=== PATIENT | female | born 1980 | race Caucasian/White ===

== ENCOUNTER 2018-08-24 19:04 | Inpatient (IN) | payer MEDICAID ==
[~2018-08-24] VITALS: Ht 157.5 cm; Wt 103.9 kg
[2018-08-24] MEDS ORDERED: ONDANSETRON 4 MG INJ IV STA (21:04)
[2018-08-24] MEDS ORDERED: BELLADONNA/PHENOBARBITAL TAB PO STA (21:04)
[2018-08-24] MEDS ORDERED: SOD CHLORIDE 0.9% 1,000 ML IV STA (21:04)
[2018-08-24] MEDS ORDERED: KETOROLAC 15 MG INJ IV STA (21:04)
[2018-08-24] MEDS ORDERED: LIDOCAINE/MYLANTA 40 ML BTL PO STA (21:04)
[2018-08-24] MEDS ORDERED: CEPHALEXIN 500 MG CAP PO ONE (22:30)
[2018-08-24] MEDS ORDERED: CEFTRIAXONE 1 GM/50 ML (PMX) 50 ML IVPB ONE (22:30)
[2018-08-24] MEDS ORDERED: PIPER-TAZO 3.375 GM IV (PMX) 100 ML IVPB ONE (23:30)
--- NOTE | 2018-08-24 23:31 | ERD ---
ER Documentation Chief Complaint Chief Complaint right upper abd pain/vomiting x 3 days. hx of gallstones HPI 37-year-old woman complains of right upper quadrant abdominal pain with nausea and multiple episodes of vomiting over the last 3 days. She does have a history of gallstones and suspects her gallstones are acting up again. She denies fevers, no chest pain or shortness of breath, no blood per rectum or melena ROS All systems reviewed and are negative except as per history of present illness. Medications Home Meds Reported Medications [None] No Conflict Check 12/16/12 Allergies Allergies: Coded Allergies: No Known Allergy (Unverified , 12/16/12) PMhx/Soc Obesity, gallstones History of Surgery: No Anesthesia Reaction: No Hx Neurological Disorder: No Hx Respiratory Disorders: No Hx Cardiac Disorders: No Hx Psychiatric Problems: No Hx Miscellaneous Medical Probl: Yes (GALLSTONES) Hx Alcohol Use: No Hx Substance Use: No Hx Tobacco Use: No Smoking Status: Never smoker FmHx Family History: No diabetes Physical Exam Vitals Vital Signs Date Temp Pulse Resp B/P (MAP) Pulse Ox O2 O2 Flow FiO2 Time Delivery Rate 08/24/18 97.5 69 17 93/79 (84) 96 Room Air 20:59 08/24/18 97.5 65 18 120/56 100 19:07 (77) Physical Exam GENERAL: Well-developed, well-nourished, moderate discomfort, afebrile HEENT: Moist mucous membranes, pink conjunctiva, no cervical spine tenderness or step-off deformities, no goiter, no jaundice or icterus, extraocular movements intact without pain. No submandibular induration, and no pharyngeal erythema NEURO: Alert and oriented 3, cranial nerves II through XII intact bilaterally, pupils equal round reactive to light, no focal deficits or facial asymmetry, sensation intact distally Strength 5/5 in upper and lower extremities b ilaterally CARDIAC: Regular rate and rhythm, no murmurs rubs or gallops LUNGS: Clear bilaterally no wheezing crackles or stridor ABDOMEN: Soft, right upper quadrant tenderness to touch with voluntary guarding, no rigidity or rebound, no psoas sign SKIN: Warm and dry to touch, no abrasions, contusions, or hematomas, no lacerations, no ecchymosis, no target lesions, and without ulcers EXTREMITIES: No clubbing cyanosis or edema, calves are bilaterally symmetrical, no Homans sign, no popliteal cord sign. Distal pulses equal and bilateral PSYCH: Normal affect without agitation or irritability Result Diagram: 08/24/18212108/24/182121 Results 24 hrs Laboratory Tests Test 08/24/18 21:22 White Blood Count 13.0 10^3/ul Red Blood Count 4.46 10^6/ul Hemoglobin 12.7 g/dl Hematocrit 38.9 % Mean Corpuscular Volume 87.2 fl Mean Corpuscular Hemoglobin 28.5 pg Mean Corpuscular Hemoglobin Concent 32.6 g/dl Red Cell Distribution Width 13.0 % Platelet Count 289 10^3/UL Mean Platelet Volume 10.3 fl Immature Granulocytes % 0.500 % Neutrophils % 87.6 % Lymphocytes % 6.9 % Monocytes % 4.7 % Eosinophils % 0.1 % Basophils % 0.2 % Nucleated Red Blood Cells % 0.0 /100WBC Immature Granulocytes # 0.070 10^3/ul Neutrophils # 11.4 10^3/ul Lymphocytes # 0.9 10^3/ul Monocytes # 0.6 10^3/ul Eosinophils # 0.0 10^3/ul Basophils # 0.0 10^3/ul Nucleated Red Blood Cells # 0.0 10^3/ul Prothrombin Time 12.7 Sec Prothrombin Time Ratio 1.0 INR International Normalized Ratio 0.94 Activated Partial Thromboplast Time 25.1 Sec Urine Color YELLOW Urine Clarity SLIGHTLY CLOUDY Urine pH 8.0 Urine Specific [place] 1.024 Urine Ketones NEGATIVE mg/dL Urine Nitrite NEGATIVE mg/dL Urine Bilirubin NEGATIVE mg/dL Urine Urobilinogen 2+ mg/dL Urine Leukocyte Esterase TRACE [place]/ul Urine Microscopic RBC 6 /HPF Urine Microscopic WBC 5 /HPF Urine Squamous Epithelial Cells FEW /HPF Urine Bacteria FEW /HPF Urine Mucus FEW /HPF Urine Hemoglobin NEGATIVE mg/dL Urine Glucose NEGATIVE mg/dL Urine Total Protein NEGATIVE mg/dl Sodium Level 139 mmol/L Potassium Level 3.6 mmol/L Chloride Level 105 mmol/L Carbon Dioxide Level 26 mmol/L Anion Gap 8 Blood Urea Nitrogen 18 mg/dl Creatinine 0.74 mg/dl Est Glomerular Filtrat Rate mL/min > 60 mL/min Glucose Level 158 mg/dl Calcium Level 9.2 mg/dl Total Bilirubin 0.2 mg/dl Direct Bilirubin 0.00 mg/dl Indirect Bilirubin 0.2 mg/dl Aspartate Amino Transf (AST/SGOT) 384 IU/L Alanine Aminotransferase (ALT/SGPT) 170 IU/L Alkaline Phosphatase 154 IU/L Total Protein 8.2 g/dl Albumin 4.3 g/dl Globulin 3.90 g/dl Albumin/Globulin Ratio 1.10 Lipase 101 U/L Current Medications Medications Dose Sig/Katelyn Start Time Status Last (Trade) Ordered Route PRN Stop Time Admin Dose Reason Admin Sodium 1,000 ml @ Q1H STAT 08/24/18 DC 08/24/18 Chloride 1,000 mls/hr IV 21:04 21:33 08/24/18 22:03 Ondansetron 4 mg ONCE STAT 08/24/18 DC 08/24/18 HCl (Zofran IV 21:04 21:34 Inj) 08/24/18 21:13 40 ml ONCE STAT 08/24/18 DC 08/24/18 Miscellaneous PO 21:04 21:34 Medication 08/24/18 21:13 (Gi Cocktail (2)) Belladonna/ 2 tab ONCE STAT 08/24/18 DC 08/24/18 Phenobarbital PO 21:04 21:34 () 08/24/18 21:13 Ketorolac 15 mg ONCE STAT 08/24/18 DC 08/24/18 Tromethamine IV 21:04 21:33 (Toradol) 08/24/18 21:13 Ceftriaxone 50 ml @ ONCE ONCE 08/24/18 DC Sodium 100 mls/hr IVPB 22:30 08/24/18 22:30 Cephalexin 500 mg ONCE ONCE 08/24/18 DC 08/24/18 (Keflex) PO 22:30 22:20 08/24/18 22:31 Procedures/MDM IV line was established patient was placed on bus driver/monitor rhythm strip revealed a sinus rhythm at about 80 bpm with upright P and T waves. Patient was afebrile I administered 1 L normal saline IV, Toradol 15 mg IV, Zofran 4 mg IV, GI cocktail p.o. CBC reveals a mild leukocytosis at 13, electrolytes revealed dehydration, liver function tests abnormal with transaminitis and elevated alkaline phosphatase, urinalysis is equivocal and I initially treated with cephalexin 500 mg p.o. Ultrasound of the gallbladder revealed dilated common bile duct concerning for choledocholithiasis so I treated her here with Zosyn 3.375 g IV. Patient will be admitted to [facility] for continued medical management, further imaging imaging, GI consultation Departure Diagnosis: Primary Impression: Abdominal pain Abdominal location: right upper quadrant Qualified Codes: R10.11 - Right upper quadrant pain Additional Impression: Choledocholithiasis with acute cholecystitis Condition: YAMIL Veras MD Aug 24, 2018 23:31
--- NOTE | 2018-08-24 23:39 | HP ---
Date/Time of Note Date/Time of Note DATE: 08/24/18 TIME: 23:38 Assessment/Plan VTE Prophylaxis SCD applied (from Nsg): Yes Pharmacological prophylaxis: NA/contraindicated Pharm contraindication: low risk/ambulating Lines/Catheters IV Catheter Type (from Nrsg): Saline Lock Assessment/Plan Hospital Course This is a 37-year female being admitted [facility] floor for: #1 suspect choledocholithiasis: Preliminary ultrasound read showed dilated common bile duct concerning for choledocholithiasis. Transaminitis. Recommend MRCP, which has been ordered. Patient does have an Essure placed will need to confirm with MRI department whether patient is compatible for MRCP will consult GI . Prophylactic antibiotics Zosyn. Give patient n.p.o., IV fluid hydration normal saline, pain management. #2 Morbid obesity: We will check hemoglobin A 1C, lipid panel, TSH #3 DVT and GI prophylaxis: SCDs, no GI prophylaxis indicated Further treatment strategy will be implemented as per the clinical course Result Diagram: 08/24/18212108/24/182121 Results 24hrs Laboratory Tests Test 08/24/18 21:22 White Blood Count 13.0 H Red Blood Count 4.46 Hemoglobin 12.7 Hematocrit 38.9 Mean Corpuscular Volume 87.2 Mean Corpuscular Hemoglobin 28.5 L Mean Corpuscular Hemoglobin Concent 32.6 Red Cell Distribution Width 13.0 Platelet Count 289 Mean Platelet Volume 10.3 Immature Granulocytes % 0.500 H Neutrophils % 87.6 H Lymphocytes % 6.9 L Monocytes % 4.7 Eosinophils % 0.1 Basophils % 0.2 Nucleated Red Blood Cells % 0.0 Immature Granulocytes # 0.070 H Neutrophils # 11.4 H Lymphocytes # 0.9 Monocytes # 0.6 Eosinophils # 0.0 Basophils # 0.0 Nucleated Red Blood Cells # 0.0 Prothrombin Time 12.7 Prothrombin Time Ratio 1.0 INR International Normalized Ratio 0.94 Activated Partial Thromboplast Time 25.1 Urine Color YELLOW Urine Clarity SLIGHTLY CLOUDY A Urine pH 8.0 Urine Specific [place] 1.024 Urine Ketones NEGATIVE Urine Nitrite NEGATIVE Urine Bilirubin NEGATIVE Urine Urobilinogen 2+ H Urine Leukocyte Esterase TRACE A Urine Microscopic RBC 6 H Urine Microscopic WBC 5 Urine Squamous Epithelial Cells FEW Urine Bacteria FEW A Urine Mucus FEW A Urine Hemoglobin NEGATIVE Urine Glucose NEGATIVE Urine Total Protein NEGATIVE Sodium Level 139 Potassium Level 3.6 Chloride Level 105 Carbon Dioxide Level 26 Anion Gap 8 Blood Urea Nitrogen 18 Creatinine 0.74 Est Glomerular Filtrat Rate mL/min > 60 Glucose Level 158 Calcium Level 9.2 Total Bilirubin 0.2 Direct Bilirubin 0.00 Indirect Bilirubin 0.2 Aspartate Amino Transf (AST/SGOT) 384 H Alanine Aminotransferase (ALT/SGPT) 170 H Alkaline Phosphatase 154 H Total Protein 8.2 H Albumin 4.3 Globulin 3.90 H Albumin/Globulin Ratio 1.10 Lipase 101 HPI/ROS Admit Date/Time Admit Date/Time Hx of Present Illness Chief complaint: Abdominal pain and vomiting times 3 days 37-year-old woman complains of right upper quadrant abdominal pain with nausea and multiple episodes of vomiting over the last 3 days. She does have a history of gallstones and suspects her gallstones are acting up again. She reports chills. But she denies any fevers. She does have an Essure. Allergies: NKDA Medications: None ROS Const: As per HPI Eyes : No pain discharge or redness or change in visual acuity ENT: No pain, sore throat, congestion, congestion, dysphagia or discharge Respiratory: No shortness of breath, cough, sputum, wheezing, or pleuritic pain Cardiovascular: No chest pain, palpitation, PND, or edema GI : As per HPI Genitourinary: No dysuria, hematuria, flank pain , discharge or CVA tenderness Musculoskeletal: No joint pain, back pain, neck pain, restricted range of motion in neck or joints Skin: No rash, bruising or hives Neuro: No headache, dizziness, syncope, seizure, focal weakness Endocrine: No polyuria, polydipsia, temperature intolerance Psych: No hallucination, depression, anxiety or suicidal ideation PMH/Family/Social Past Medical History Gallstones Medications Current Medications Piperacillin Sod/ Tazobactam Sod 100 ml @ 200 mls/hr ONCE ONCE IVPB ; Start 08/24/18 at 23:30; Stop 08/24/18 at 23:59; Status UNV Coded Allergies: No Known Allergy (Unverified , 12/16/12) Past Surgical History essure placement, appendectomy Family History Significant Family History: no pertinent family hx Social History Alcohol Use: none Smoking Status: Never smoker Drug Use: cocaine Exam/Review of Systems Vital Signs Vitals Vital Signs Date Temp Pulse Resp B/P (MAP) Pulse Ox O2 O2 Flow FiO2 Time Delivery Rate 08/24/18 97.5 69 17 93/79 (84) 96 Room Air 20:59 Exam Exam General: Currently lying in no acute distress HEENT: Atraumatic, normocephalic. The pupils are equal, round and reactive. Extraocular motor are intact Neck: Supple with full range of motion. No rigidity or meningismus Chest: Nontender Lungs: Clear to auscultation bilaterally no crackles rales or wheezing Heart: Normal S1-S2, Regular rhythm and rate. No murmur, S3, or S4 Abdomen: Morbidly obese, mild tenderness of patient with right upper quadrant, soft, nondistended , bowel sounds are present. No guarding no rebound tenderness , No masses or organomegaly. No costovertebral temporal angle mass Extremities: Normal to inspection, no edema no cyanosis Neurologic: Normal mental status, speech normal, cranial nerves II through XII are intact, motor and sensory are intact, no focal weakness Additional Comments Ultrasound of the gallbladder revealed dilated common bile duct concerning for choledocholithiasis AUGIE BLACK Aug 24, 2018 23:39
[2018-08-25] MEDS ORDERED: DOCUSATE SODIUM 100 MG CAP PO PRN
[2018-08-25] MEDS ORDERED: NACL 0.9% 3 ML SYG IV SCH
[2018-08-25] MEDS ORDERED: BISACODYL (EC) 5 MG TAB PO PRN
[2018-08-25] MEDS ORDERED: ONDANSETRON 4 MG INJ IV PRN
[2018-08-25] MEDS: PIPER-TAZO 3.375 GM IV (PMX) 100 ML IVPB SCH ×4 (00:22→17:52)
[2018-08-25] MEDS: HYDROmorphONE 0.5 MG/0.5 ML SYG IV PRN (00:22)
[2018-08-25 01:42] VITALS: Ht 157.5 cm; Wt 103.9 kg
[2018-08-25 01:52] VITALS: BP 117/64; PULSE 53; RESP 16
[2018-08-25] MEDS: SOD CHLORIDE 0.9% 1,000 ML IV SCH ×2 (02:21→17:51)
[2018-08-25 08:42] VITALS: BP 125/59; PULSE 51; RESP 18
--- NOTE | 2018-08-25 10:35 | PN ---
Date/Time of Note Date/Time of Note DATE: 08/25/18 TIME: 10:34 Assessment/Plan VTE Prophylaxis Risk score (from Ns)>0 risk: 0 SCD applied (from Ns): Yes Pharmacological prophylaxis: NA/contraindicated Pharm contraindication: low risk/ambulating Lines/Catheters IV Catheter Type (from Nrs): Saline Lock Assessment/Plan Hospital Course S: feels obverall better but still with mild abd pain O: Constitutional: alert, oriented,no distress Head: atraumatic, normocephalic Neck: non-tender, supple Respiratory: clear to auscultation Cardiovascular: regular rate and rhythm Gastrointestinal: S/ NT / ND / +BS Extremities: no edema, good radial pulses assessment and plan: #1 suspect choledocholithiasis: -Preliminary ultrasound read showed dilated common bile duct concerning for choledocholithiasis. -Transaminitis. Recommend MRCP, which has been ordered. -Patient does have an Essure placed will need to confirm with MRI department whether patient is compatible for MRCP will consult GI . -Prophylactic antibiotics Zosyn. -will also need surgical consult #2 Possible UTI: -on abx for #1 Result Diagram: 08/25/18 0421 08/25/18 0421 Results 24hrs Laboratory Tests Test 08/24/18 21:22 08/25/18 04:21 White Blood Count 13.0 H 6.8 # Red Blood Count 4.46 4.03 L Hemoglobin 12.7 11.5 L Hematocrit 38.9 35.5 L Mean Corpuscular Volume 87.2 88.1 Mean Corpuscular Hemoglobin 28.5 L 28.5 L Mean Corpuscular Hemoglobin Concent 32.6 32.4 Red Cell Distribution Width 13.0 13.3 Platelet Count 289 256 Mean Platelet Volume 10.3 10.6 H Immature Granulocytes % 0.500 H 0.100 Neutrophils % 87.6 H 76.7 Lymphocytes % 6.9 L 14.3 L Monocytes % 4.7 8.6 Eosinophils % 0.1 0.0 Basophils % 0.2 0.3 Nucleated Red Blood Cells % 0.0 0.0 Immature Granulocytes # 0.070 H 0.010 Neutrophils # 11.4 H 5.2 Lymphocytes # 0.9 1.0 Monocytes # 0.6 0.6 Eosinophils # 0.0 0.0 Basophils # 0.0 0.0 Nucleated Red Blood Cells # 0.0 0.0 Prothrombin Time 12.7 Prothrombin Time Ratio 1.0 INR International Normalized Ratio 0.94 Activated Partial Thromboplast Time 25.1 Urine Color YELLOW Urine Clarity SLIGHTLY CLOUDY A Urine pH 8.0 Urine Specific [place] 1.024 Urine Ketones NEGATIVE Urine Nitrite NEGATIVE Urine Bilirubin NEGATIVE Urine Urobilinogen 2+ H Urine Leukocyte Esterase TRACE A Urine Microscopic RBC 6 H Urine Microscopic WBC 5 Urine Squamous Epithelial Cells FEW Urine Bacteria FEW A Urine Mucus FEW A Urine Hemoglobin NEGATIVE Urine Glucose NEGATIVE Urine Total Protein NEGATIVE Sodium Level 139 142 Potassium Level 3.6 4.1 Chloride Level 105 106 Carbon Dioxide Level 26 28 Anion Gap 8 8 Blood Urea Nitrogen 18 16 Creatinine 0.74 0.76 Est Glomerular Filtrat Rate mL/min > 60 > 60 Glucose Level 158 118 # Calcium Level 9.2 8.3 L Total Bilirubin 0.2 0.4 Direct Bilirubin 0.00 0.00 Indirect Bilirubin 0.2 0.4 Aspartate Amino Transf (AST/SGOT) 384 H 852 H Alanine Aminotransferase (ALT/SGPT) 170 H 520 H Alkaline Phosphatase 154 H 133 H Total Protein 8.2 H 6.9 # Albumin 4.3 3.4 Globulin 3.90 H 3.50 H Albumin/Globulin Ratio 1.10 0.97 Lipase 101 Hemoglobin A1c 4.9 Magnesium Level 2.4 Triglycerides Level 63 Cholesterol Level 158 LDL Cholesterol, Calculated 100 HDL Cholesterol 45 Cholesterol/HDL Ratio 3.5 Thyroid Stimulating Hormone (TSH) 0.694 Exam/Review of Systems Exam Vitals Vital Signs Date Temp Pulse Resp B/P (MAP) Pulse Ox O2 O2 Flow FiO2 Time Delivery Rate 08/25/18 97.9 51 18 125/59 99 Nasal 08:42 (81) Cannula Intake and Output 08/24/18 08/24/18 08/25/18 1515:00 23:00 07:00 IntakeIntake Total 320 ml BalanceBalance 320 ml Exam General: Currently lying in no acute distress HEENT: Atraumatic, normocephalic. The pupils are equal, round and reactive. Extraocular motor are intact Neck: Supple with full range of motion. No rigidity or meningismus Chest: Nontender Lungs: Clear to auscultation bilaterally no crackles rales or wheezing Heart: Normal S1-S2, Regular rhythm and rate. No murmur, S3, or S4 Abdomen: Morbidly obese, mild tenderness of patient with right upper quadrant, soft, nondistended , bowel sounds are present. No guarding no rebound tender ness , No masses or organomegaly. No costovertebral temporal angle mass Extremities: Normal to inspection, no edema no cyanosis Neurologic: Normal mental status, speech normal, cranial nerves II through XII are intact, motor and sensory are intact, no focal weakness Results Results 24hrs Laboratory Tests Test 08/24/18 21:22 08/25/18 04:21 White Blood Count 13.0 H 6.8 # Red Blood Count 4.46 4.03 L Hemoglobin 12.7 11.5 L Hematocrit 38.9 35.5 L Mean Corpuscular Volume 87.2 88.1 Mean Corpuscular Hemoglobin 28.5 L 28.5 L Mean Corpuscular Hemoglobin Concent 32.6 32.4 Red Cell Distribution Width 13.0 13.3 Platelet Count 289 256 Mean Platelet Volume 10.3 10.6 H Immature Granulocytes % 0.500 H 0.100 Neutrophils % 87.6 H 76.7 Lymphocytes % 6.9 L 14.3 L Monocytes % 4.7 8.6 Eosinophils % 0.1 0.0 Basophils % 0.2 0.3 Nucleated Red Blood Cells % 0.0 0.0 Immature Granulocytes # 0.070 H 0.010 Neutrophils # 11.4 H 5.2 Lymphocytes # 0.9 1.0 Monocytes # 0.6 0.6 Eosinophils # 0.0 0.0 Basophils # 0.0 0.0 Nucleated Red Blood Cells # 0.0 0.0 Prothrombin Time 12.7 Prothrombin Time Ratio 1.0 INR International Normalized Ratio 0.94 Activated Partial Thromboplast Time 25.1 Urine Color YELLOW Urine Clarity SLIGHTLY CLOUDY A Urine pH 8.0 Urine Specific [place] 1.024 Urine Ketones NEGATIVE Urine Nitrite NEGATIVE Urine Bilirubin NEGATIVE Urine Urobilinogen 2+ H Urine Leukocyte Esterase TRACE A Urine Microscopic RBC 6 H Urine Microscopic WBC 5 Urine Squamous Epithelial Cells FEW Urine Bacteria FEW A Urine Mucus FEW A Urine Hemoglobin NEGATIVE Urine Glucose NEGATIVE Urine Total Protein NEGATIVE Sodium Level 139 142 Potassium Level 3.6 4.1 Chloride Level 105 106 Carbon Dioxide Level 26 28 Anion Gap 8 8 Blood Urea Nitrogen 18 16 Creatinine 0.74 0.76 Est Glomerular Filtrat Rate mL/min > 60 > 60 Glucose Level 158 118 # Calcium Level 9.2 8.3 L Total Bilirubin 0.2 0.4 Direct Bilirubin 0.00 0.00 Indirect Bilirubin 0.2 0.4 Aspartate Amino Transf (AST/SGOT) 384 H 852 H Alanine Aminotransferase (ALT/SGPT) 170 H 520 H Alkaline Phosphatase 154 H 133 H Total Protein 8.2 H 6.9 # Albumin 4.3 3.4 Globulin 3.90 H 3.50 H Albumin/Globulin Ratio 1.10 0.97 Lipase 101 Hemoglobin A1c 4.9 Magnesium Level 2.4 Triglycerides Level 63 Cholesterol Level 158 LDL Cholesterol, Calculated 100 HDL Cholesterol 45 Cholesterol/HDL Ratio 3.5 Thyroid Stimulating Hormone (TSH) 0.694 Medications Medication Current Medications Sodium Chloride 1,000 ml @ 80 mls/hr [id number] IV Last administered on 08/25/18at 02:21; Admin Dose 80 MLS/HR; Start 08/24/18 at 23:35; Stop 08/25/18 at 23:34 IV Flush (NS 3 ml) 3 ml PER PROTOCOL IV ; Start 08/25/18 at 00:00 Ondansetron HCl (Zofran Inj) 4 mg Q6H PRN IV NAUSEA/VOMITING; Start 08/25/18 at 00:00 Hydromorphone HCl (Dilaudid) 0.5 mg Q4H PRN IV .SEVERE PAIN 7-10 Last administered on 08/25/18at 00:22; Admin Dose 0.5 MG; Start 08/25/18 at 00:00 Docusate Sodium (Colace) 100 mg Q12H PRN PO .CONSTIPATION; Start 08/25/18 at 00:00 Bisacodyl (Dulcolax) 5 mg DAILY PRN PO .CONSTIPATION; Start 08/25/18 at 00:00 Piperacillin Sod/ Tazobactam Sod 100 ml @ 200 mls/hr Q6 IVPB Last administered on 08/25/18at 05:10; Admin Dose 200 MLS/HR; Start 08/25/18 at 00:00 ANGEL MENDOSA Aug 25, 2018 10:34
--- NOTE | 2018-08-25 13:20 | CONS ---
Assessment/Plan Assessment/Plan Hospital Course (Demo Recall) Summary Assessment and Plan: Assessment: Elevated LFTs -R/o choledocholithiasis Cholelithiasis Hepatic steatosis. Obesity Plan: Clear liquids NPO after 08/26/18 at 0900 Not completely clear if Essure is compatible with MRI- therefore MRCP cannot be completed- however given physical exam and abdominal ultrasound results- we will proceed with ERCP tomorrow. Endoscopy - risks/benefits/alternatives/indications of procedure and sedation/anesthesia discussed with patient who states understanding and gives informed consent to proceed. Pt should follow up with GI as an out-pt for fibroscoring given hepatic steatosis Patient seen in collaboration with Dr. Rascon/Pam CC: RAMSES RASCON ; Consultation Date/Type/Reason Admit Date/Time Date of Consultation: Aug 25, 2018 Type of Consult GI Reason for Consultation Elevated LFTs R/o choledocholithiasis Date/Time of Note DATE: 08/25/18 TIME: 12:49 Hx of Present Illness This is a 37 year old female with PMH of cholelithiasis, s/p Essure placed 6 years ago. Who presented to the ED with c/o RUQ pain associated nausea and vomiting. Labs revealed elevated LFTs which has increased today. Pt has a gallbladder u/s cholelithiasis common bile duct measuring up to 13 mm, worrisome for biliary obstruction. Hepatic steatosis. Given history of Essure placement unclear if we are able to proceed with MRI, therefore we will cancel MRCP and plan for ERCP tomorrow. Discussed plan with patient including risk/benefits of alternatives patient verbalized understanding is agreeable to procedure tomorrow. Review of Systems: A 12 system, review was conducted and is negative except as noted in the HPI or here. Past Medical History Home Meds Reported Medications [None] No Conflict Check 12/16/12 Medications Current Medications Sodium Chloride 1,000 ml @ 80 mls/hr [id number] IV Last administered on 08/25/18at 02:21; Admin Dose 80 MLS/HR; Start 08/24/18 at 23:35; Stop 08/25/18 at 23:34 IV Flush (NS 3 ml) 3 ml PER PROTOCOL IV ; Start 08/25/18 at 00:00 Ondansetron HCl (Zofran Inj) 4 mg Q6H PRN IV NAUSEA/VOMITING; Start 08/25/18 at 00:00 Hydromorphone HCl (Dilaudid) 0.5 mg Q4H PRN IV .SEVERE PAIN 7-10 Last administered on 08/25/18at 00:22; Admin Dose 0.5 MG; Start 08/25/18 at 00:00 Docusate Sodium (Colace) 100 mg Q12H PRN PO .CONSTIPATION; Start 08/25/18 at 00:00 Bisacodyl (Dulcolax) 5 mg DAILY PRN PO .CONSTIPATION; Start 08/25/18 at 00:00 Piperacillin Sod/ Tazobactam Sod 100 ml @ 200 mls/hr Q6 IVPB Last administered on 08/25/18at 12:28; Admin Dose 200 MLS/HR; Start 08/25/18 at 00:00 Allergies: Coded Allergies: No Known Allergy (Unverified , 12/16/12) Social History Alcohol Use: none Smoking Status: Never smoker Drug Use: cocaine Exam/Review of Systems Exam Vitals Vital Signs Date Temp Pulse Resp B/P (MAP) Pulse Ox O2 O2 Flow FiO2 Time Delivery Rate 08/25/18 97.9 51 18 125/59 99 Nasal 08:42 (81) Cannula Intake and Output 08/24/18 08/24/18 08/25/18 1515:00 23:00 07:00 IntakeIntake Total 320 ml BalanceBalance 320 ml Exam PHYSICAL EXAMINATION: GENERAL: Well developed, obese, alert & oriented x 3, in no acute distress SKIN: No lesions HEAD: Normocephalic, atraumatic, no tenderness. EYES: Pupils equal reactive to light, no discharge. EARS/NOSE AND THROAT: Ears normal, nose normal NECK: Supple, no masses CHEST: Inspection within normal limits. CARDIOVASCULAR: Heart: Regular rate and rhythm RESPIRATORY: Lungs clear to auscultation GASTROINTESTINAL AND LIVER: Abdomen: Soft, RUQ tenderness, non-distended, no hernias, no masses, no organomegaly, no ascites, no guarding, no rebound tenderness, normoactive bowel sounds. Rectal: Deferred. Results Result Diagram: 08/25/18 0421 08/25/18 0421 Results 24hrs Laboratory Tests Test 08/24/18 21:22 08/25/18 04:21 White Blood Count 13.0 H 6.8 # Red Blood Count 4.46 4.03 L Hemoglobin 12.7 11.5 L Hematocrit 38.9 35.5 L Mean Corpuscular Volume 87.2 88.1 Mean Corpuscular Hemoglobin 28.5 L 28.5 L Mean Corpuscular Hemoglobin Concent 32.6 32.4 Red Cell Distribution Width 13.0 13.3 Platelet Count 289 256 Mean Platelet Volume 10.3 10.6 H Immature Granulocytes % 0.500 H 0.100 Neutrophils % 87.6 H 76.7 Lymphocytes % 6.9 L 14.3 L Monocytes % 4.7 8.6 Eosinophils % 0.1 0.0 Basophils % 0.2 0.3 Nucleated Red Blood Cells % 0.0 0.0 Immature Granulocytes # 0.070 H 0.010 Neutrophils # 11.4 H 5.2 Lymphocytes # 0.9 1.0 Monocytes # 0.6 0.6 Eosinophils # 0.0 0.0 Basophils # 0.0 0.0 Nucleated Red Blood Cells # 0.0 0.0 Prothrombin Time 12.7 Prothrombin Time Ratio 1.0 INR International Normalized Ratio 0.94 Activated Partial Thromboplast Time 25.1 Urine Color YELLOW Urine Clarity SLIGHTLY CLOUDY A Urine pH 8.0 Urine Specific [place] 1.024 Urine Ketones NEGATIVE Urine Nitrite NEGATIVE Urine Bilirubin NEGATIVE Urine Urobilinogen 2+ H Urine Leukocyte Esterase TRACE A Urine Microscopic RBC 6 H Urine Microscopic WBC 5 Urine Squamous Epithelial Cells FEW Urine Bacteria FEW A Urine Mucus FEW A Urine Hemoglobin NEGATIVE Urine Glucose NEGATIVE Urine Total Protein NEGATIVE Sodium Level 139 142 Potassium Level 3.6 4.1 Chloride Level 105 106 Carbon Dioxide Level 26 28 Anion Gap 8 8 Blood Urea Nitrogen 18 16 Creatinine 0.74 0.76 Est Glomerular Filtrat Rate mL/min > 60 > 60 Glucose Level 158 118 # Calcium Level 9.2 8.3 L Total Bilirubin 0.2 0.4 Direct Bilirubin 0.00 0.00 Indirect Bilirubin 0.2 0.4 Aspartate Amino Transf (AST/SGOT) 384 H 852 H Alanine Aminotransferase (ALT/SGPT) 170 H 520 H Alkaline Phosphatase 154 H 133 H Total Protein 8.2 H 6.9 # Albumin 4.3 3.4 Globulin 3.90 H 3.50 H Albumin/Globulin Ratio 1.10 0.97 Lipase 101 Hemoglobin A1c 4.9 Magnesium Level 2.4 Triglycerides Level 63 Cholesterol Level 158 LDL Cholesterol, Calculated 100 HDL Cholesterol 45 Cholesterol/HDL Ratio 3.5 Thyroid Stimulating Hormone (TSH) 0.694 Medications Medication Current Medications Sodium Chloride 1,000 ml @ 80 mls/hr [id number] IV Last administered on 08/25/18at 02:21; Admin Dose 80 MLS/HR; Start 08/24/18 at 23:35; Stop 08/25/18 at 23:34 IV Flush (NS 3 ml) 3 ml PER PROTOCOL IV ; Start 08/25/18 at 00:00 Ondansetron HCl (Zofran Inj) 4 mg Q6H PRN IV NAUSEA/VOMITING; Start 08/25/18 at 00:00 Hydromorphone HCl (Dilaudid) 0.5 mg Q4H PRN IV .SEVERE PAIN 7-10 Last administered on 08/25/18at 00:22; Admin Dose 0.5 MG; Start 08/25/18 at 00:00 Docusate Sodium (Colace) 100 mg Q12H PRN PO .CONSTIPATION; Start 08/25/18 at 00:00 Bisacodyl (Dulcolax) 5 mg DAILY PRN PO .CONSTIPATION; Start 08/25/18 at 00:00 Piperacillin Sod/ Tazobactam Sod 100 ml @ 200 mls/hr Q6 IVPB Last administered on 08/25/18at 12:28; Admin Dose 200 MLS/HR; Start 08/25/18 at 00:00 RAGHAV MELENDEZ Aug 25, 2018 13:09
[2018-08-25 14:14] VITALS: BP 120/59; PULSE 60; RESP 18
[2018-08-25 20:25] VITALS: BP 95/54; PULSE 57; RESP 18
[2018-08-26] VITALS (15 sets, daily range): BP systolic 95–136; BP diastolic 57–70; PULSE 50–67; RESP 12–20
[2018-08-26] MEDS: PIPER-TAZO 3.375 GM IV (PMX) 100 ML IVPB SCH ×2 (00:01→06:06)
[2018-08-26] MEDS ORDERED: INSULIN ASPART [NOVOLOG] 3 ML PEN SC ONE (08:30)
--- NOTE | 2018-08-26 10:16 | PN ---
Date/Time of Note Date/Time of Note DATE: 08/26/18 TIME: 10:12 Assessment/Plan VTE Prophylaxis Risk score (from Nsg)>0 risk: 0 SCD applied (from Nsg): Yes Pharmacological prophylaxis: NA/contraindicated Pharm contraindication: low risk/ambulating Lines/Catheters IV Catheter Type (from Nrsg): Peripheral IV Assessment/Plan Hospital Course S: headache, NPO for ERCP today O: Constitutional: alert, oriented,no distress Head: atraumatic, normocephalic Neck: non-tender, supple Respiratory: clear to auscultation Cardiovascular: regular rate and rhythm Gastrointestinal: S/ NT / ND / +BS Extremities: no edema, good radial pulses assessment and plan: #1 Symptomatic cholelithiasis with transaminitis r/o choledocholithiasis: -Preliminary ultrasound read showed dilated common bile duct concerning for choledocholithiasis. -Transaminitis. -MRCP was done but non conclusive, planned for ERCP today . -will deescalate abx as no sign of cholecystitis on MRI #2 Possible UTI: -continue with macrobid Result Diagram: 08/25/1842008/25/18420 Results 24hrs Laboratory Tests Test 08/26/18 02:50 08/26/18 04:23 Urine Test NEGATIVE Hepatitis B Surface Antigen NEGATIVE Hepatitis B Surface Antibody NEGATIVE Hepatitis B Core Total Antibody NEGATIVE Hepatitis C Antibody NEGATIVE Exam/Review of Systems Exam Vitals Vital Signs Date Temp Pulse Resp B/P (MAP) Pulse Ox O2 O2 Flow FiO2 Time Delivery Rate 08/26/18 98.0 63 18 136/63 96 07:39 (87) 08/25/18 Nasal 2.0 14:14 Cannula Intake and Output 08/25/18 08/25/18 08/26/18 1414:59 22:59 06:59 IntakeIntake Total 420 ml 1480 ml 1000 ml BalanceBalance 420 ml 1480 ml 1000 ml Results Results 24hrs Laboratory Tests Test 08/26/18 02:50 08/26/18 04:23 Urine Test NEGATIVE Hepatitis B Surface Antigen NEGATIVE Hepatitis B Surface Antibody NEGATIVE Hepatitis B Core Total Antibody NEGATIVE Hepatitis C Antibody NEGATIVE Medications Medication Current Medications IV Flush (NS 3 ml) 3 ml PER PROTOCOL IV ; Start 08/25/18 at 00:00 Ondansetron HCl (Zofran Inj) 4 mg Q6H PRN IV NAUSEA/VOMITING; Start 08/25/18 at 00:00 Hydromorphone HCl (Dilaudid) 0.5 mg Q4H PRN IV .SEVERE PAIN 7-10 Last administered on 08/25/18at 00:22; Admin Dose 0.5 MG; Start 08/25/18 at 00:00 Docusate Sodium (Colace) 100 mg Q12H PRN PO .CONSTIPATION; Start 08/25/18 at 00:00 Bisacodyl (Dulcolax) 5 mg DAILY PRN PO .CONSTIPATION; Start 08/25/18 at 00:00 Piperacillin Sod/ Tazobactam Sod 100 ml @ 200 mls/hr Q6 IVPB Last administered on 08/26/18at 06:06; Admin Dose 200 MLS/HR; Start 08/25/18 at 00:00 Indomethacin (Indocin Supp) 100 mg ONCE ONCE MD ; Start 08/26/18 at 16:30; Stop 08/26/18 at 16:31 Acetaminophen (Tylenol Tab) 650 mg Q6H PRN PO MILD PAIN(1-3)OR ELEVATED TEMP; Start 08/26/18 at 10:30; Status ANGEL PHAM Aug 26, 2018 10:16
[2018-08-26] MEDS: SOD CHLORIDE 0.9% 1,000 ML IV SCH (10:22)
[2018-08-26] MEDS: ACETAMINOPHEN 325 MG TAB PO PRN (10:23)
--- NOTE | 2018-08-26 13:31 | PREAC ---
Date/Time of Note Date/Time of Note DATE: 08/26/18 TIME: 13:30 Anesthesia Eval and Record Evaluation Time Pre-Procedure Interview DATE: 08/26/18 TIME: 13:30 Age 37 Sex female NPO: 8 hrs Preoperative diagnosis CHOLEDOCHOLITHIAISIS Planned procedure ERCP Past Medical History Past Medical History: Includes GI: Obesity Surgery & Anesthesia Issues No known issue Meds Anticoagulation: No Beta Kahlil within 24 hr: No Reason Beta Kahlil not given: Pt. not on B-Kahlil Reported Medications [None] No Conflict Check 12/16/12 Current Medications IV Flush (NS 3 ml) 3 ml PER PROTOCOL IV ; Start 08/25/18 at 00:00 Ondansetron HCl (Zofran Inj) 4 mg Q6H PRN IV NAUSEA/VOMITING; Start 08/25/18 at 00:00 Hydromorphone HCl (Dilaudid) 0.5 mg Q4H PRN IV .SEVERE PAIN 7-10 Last administered on 08/25/18at 00:22; Admin Dose 0.5 MG; Start 08/25/18 at 00:00 Docusate Sodium (Colace) 100 mg Q12H PRN PO .CONSTIPATION; Start 08/25/18 at 00:00 Bisacodyl (Dulcolax) 5 mg DAILY PRN PO .CONSTIPATION; Start 08/25/18 at 00:00 Indomethacin (Indocin Supp) [address] ; Start 08/26/18 at 16:30; Stop 08/26/18 at 16:31 Acetaminophen (Tylenol Tab) 650 mg Q6H PRN PO MILD PAIN(1-3)OR ELEVATED TEMP Last administered on 08/26/18at 10:23; Admin Dose 650 MG; Start 08/26/18 at 10:30 Nitrofurantoin Macrocrystals (Macrobid) 100 mg BID PO ; Start 08/26/18 at 21:00; Stop 08/29/18 at 20:59 Meds reviewed: Yes Allergies Coded Allergies: No Known Allergy (Unverified , 12/16/12) Allergies Reviewed: Yes Labs/Studies Labs Reviewed: Reviewed by anesthesiologist Result Diagram: 08/25/1842008/25/18420 test: Negative Pre-procedure Exam Last vitals Vital Signs Date Temp Pulse Resp B/P (MAP) Pulse Ox O2 O2 Flow FiO2 Time Delivery Rate 08/26/18 98.0 63 18 136/63 96 07:39 (87) 08/25/18 Nasal 2.0 14:14 Cannula Airway: Adequate mouth opening, Adequate thyromental dist Mallampati: Mallampati II Teeth: Normal Lung: Normal Heart: Normal ASA Physical Status ASA physical status: 2 Emergency: None Planned Anesthetic General/MAC: ETT Planned Pain Management Parenteral pain med Pre-operative Attestations Prior to commencing anesthesia and surgery, the patient was re-evaluated, there was verification of: *The patient's identity *The results of appropriate recent lab work and preoperative vital signs *The above evaluation not changing prior to induction *Anesthetic plan, risk benefits, alternative and complications discussed with patient/family; questions answered; patient/family understands, accepts and wishes to proceed. LIDYA MEDEIROS Aug 26, 2018 13:31
[2018-08-26] MEDS ORDERED: INDOMETHACIN 50 MG SUPP PR ONE ×2 (14:00→16:30)
--- NOTE | 2018-08-26 14:01 | HPN ---
Date/Time of Note Date/Time of Note DATE: 08/26/18 TIME: 14:01 Interval H&P Admission Note Pt. seen H&P reviewed: No system changes UZMA AKERS MD Aug 26, 2018 14:01
[2018-08-26] MEDS ORDERED: IOHEXOL 300MG/ML 30 ML BTL ONE ×2 (14:23→15:28)
[2018-08-26] MEDS ORDERED: PROPOFOL 100 ML ONE (15:38)
[2018-08-26] MEDS ORDERED: LIDOCAINE 2% (SDV) 5 ML INJ ONE (15:38)
[2018-08-26] MEDS ORDERED: DEXAMETHASONE 4 MG/ML 5 ML INJ ONE (15:42)
[2018-08-26] MEDS ORDERED: ONDANSETRON 4 MG INJ ONE (15:44)
--- NOTE | 2018-08-26 16:24 | PAC ---
Date/Time of Note Date/Time of Note DATE: 08/26/18 TIME: 16:23 Post-Anesthesia Notes Post-Anesthesia Note Last documented vital signs Vital Signs Date Temp Pulse Resp B/P (MAP) Pulse Ox O2 O2 Flow FiO2 Time Delivery Rate 08/26/18 98.0 63 18 136/63 96 1624 (87) 08/25/18 Nasal 2.0 14:14 Cannula Activity: WNL Respiratory function: WNL Cardiovascular function: WNL Mental status: Baseline Pain reasonably controlled: Yes Hydration appropriate: Yes Nausea/Vomiting absent: Yes LIDYA MEDEIROS Aug 26, 2018 16:24
[2018-08-26] MEDS ORDERED: hydrALAzine 20 MG INJ IV PRN (16:30)
[2018-08-26] MEDS ORDERED: FENTAnyl 50 MCG/ML VIAL IV PRN ×3 (16:30)
[2018-08-26] MEDS ORDERED: LABETALOL HCL 20MG INJ IV PRN (16:30)
[2018-08-26] MEDS ORDERED: EPHEDrine SULFATE 50 MG/5 ML SYG IV PRN (16:30)
[2018-08-26] MEDS ORDERED: ONDANSETRON 4 MG INJ IV PRN (16:30)
--- NOTE | 2018-08-26 16:57 | OPPN ---
Date/Time of Note Date/Time of Note DATE: 08/26/18 TIME: 16:43 Proc Note GI Procedure Date 08/26/18 Indication: diagnostic, treatment Pre-procedure Diagnosis Choledocholithiasis Post-procedure Diagnosis Impression: Choledocholithiasis. Post sphincterotomy. Post stone removal. Plan: Close observation. Strongly advised cholecystectomy as multiple stones are near or at the cystic duct Procedure Performed: ERCP (With sphincterotomy plus stone removal) Surgeon UZMA AKERS MD see signature line Project Superintendent none Anesthesia Type: MAC Anesthesiologist: LIDYA MEDEIROS Tourniquet Time none EBL none Transfusion required none Biopsy 1: NONE Grafts/Implants none Tubes/Drains none Complication(s) none Disposition: PACU Procedure Description After informed consent, with the patient/relatives understanding the procedure, its indications, potential risks and complications, including but not limited to: allergic reaction, bleeding, perforation or infection, and after all pertinent questions were answered to the patients satisfaction, the patient/relatives signed witnessed informed consent. Following this, premedication was administered slowly IV push under careful cardiovascular and respiratory monitoring with pulse oximetry, automatic blood pressure, and bus driver/monitor. Once the sedative effect was achieved the patient was place in the prone position in the radiology special procedures suite; the side viewing panendoscope was introduced and advanced under visual control. Careful examination of the upper gastrointestinal tract, both on insertion as well as withdrawal of the instrument disclosed the following findings: Esophagus: The mucosa of the entire appears within normal limits. There is no evidence of esophagitis, varices, neoplasm or stricture. No Hiatal Hernia identified. Stomach: Upon entrance to the stomach air was insufflated, the gastric mcneal distended normally, the mucosa of the fundus, body and antrum of the stomach was carefully examined both head-on and on retroflexion, and shows no abnormalities. There is no evidence of gastritis, ulcers, or neoplasm. Pylorus: The pylorus appears patent and within normal limits, with no evidence of gastric outlet obstruction. Duodenum: The duodenal mucosa was carefully examined in the duodenal bulb as well as the second portion of the duodenum and appears unremarkable with no evidence of duodenitis, ulcer or neoplasm. Ampulla of vater: The ampulla of Vater was identified and carefully examined appearing within normal limits. Cannulation: At this point cannulation was accomplished with the following fluoroscopic findings: Pancreatogram: Not obtained Cholangiogram: There are several small filling defects in the distal common bile duct. A standard sphincterotomy was performed without difficulty. A 9-12 mm balloon was utilized to sweep the biliary tree and remove stones. Balloon cholangiogram was obtained and shows no residual stones and rapid emptying. The instrument was then withdrawn the patient tolerated the procedure well and was transfer out of the endoscopy suite awake, and in good condition to continue to recover under observation. Copies To: CC: UZMA AKERS MD ; UZMA AKERS MD Aug 26, 2018 16:54
[2018-08-26] MEDS: NITROFURANTOIN (SR) 100 MG CAP PO SCH (20:24)
[2018-08-27 01:25] VITALS: BP 120/73; PULSE 61; RESP 18
[2018-08-27 08:01] VITALS: BP 114/75; PULSE 64; RESP 18
[2018-08-27] MEDS: NITROFURANTOIN (SR) 100 MG CAP PO SCH ×2 (09:03→20:58)
[2018-08-27] MEDS: HYDROmorphONE 0.5 MG/0.5 ML SYG IV PRN (09:55)
[2018-08-27] MEDS: ACETAMINOPHEN 325 MG TAB PO PRN (10:10)
--- NOTE | 2018-08-27 10:17 | PN ---
Date/Time of Note Date/Time of Note DATE: 08/27/18 TIME: 10:13 Assessment/Plan VTE Prophylaxis Risk score (from Ns)>0 risk: 1 SCD applied (from Ns): Yes Pharmacological prophylaxis: NA/contraindicated Pharm contraindication: other (SCDS) Lines/Catheters IV Catheter Type (from [facility]): Peripheral IV Assessment/Plan Hospital Course S: ruq pain O: Constitutional: alert, oriented,no distress Head: atraumatic, normocephalic Neck: non-tender, supple Respiratory: clear to auscultation Cardiovascular: regular rate and rhythm Gastrointestinal: S/ NT / ND / +BS Extremities: no edema, good radial pulses assessment and plan: #1 Symptomatic cholelithiasis with choledocholithiasis s/p ERCP with sphinc terotomy and stone removal. - GI Strongly advised cholecystectomy as multiple stones are near or at the cystic duct, will notify surgery -continue supportive care and pain control #2 Possible UTI: -continue with macrobid Result Diagram: 08/27/18 0425 08/27/18 0425 Results 24hrs Laboratory Tests Test 08/27/18 04:25 White Blood Count 6.4 Red Blood Count 3.91 L Hemoglobin 11.2 L Hematocrit 34.2 L Mean Corpuscular Volume 87.5 Mean Corpuscular Hemoglobin 28.6 L Mean Corpuscular Hemoglobin Concent 32.7 Red Cell Distribution Width 12.8 Platelet Count 249 Mean Platelet Volume 10.5 H Immature Granulocytes % 0.300 Neutrophils % 86.8 H Lymphocytes % 11.0 L Monocytes % 1.7 Eosinophils % 0.0 Basophils % 0.2 Nucleated Red Blood Cells % 0.0 Immature Granulocytes # 0.020 Neutrophils # 5.5 Lymphocytes # 0.7 L Monocytes # 0.1 L Eosinophils # 0.0 Basophils # 0.0 Nucleated Red Blood Cells # 0.0 Sodium Level 140 Potassium Level 3.8 Chloride Level 108 Carbon Dioxide Level 25 Anion Gap 7 Blood Urea Nitrogen 7 Creatinine 0.47 Est Glomerular Filtrat Rate mL/min > 60 Glucose Level 111 Calcium Level 8.9 Total Bilirubin 0.0 L Direct Bilirubin 0.00 Indirect Bilirubin 0.0 Aspartate Amino Transf (AST/SGOT) 152 H Alanine Aminotransferase (ALT/SGPT) 342 H Alkaline Phosphatase 165 H Total Protein 6.9 Albumin 3.6 Globulin 3.30 H Albumin/Globulin Ratio 1.09 Exam/Review of Systems Exam Vitals Vital Signs Date Temp Pulse Resp B/P (MAP) Pulse Ox O2 O2 Flow FiO2 Time Delivery Rate 08/27/18 36.6 10:10 08/27/18 64 18 114/75 100 Room Air 08:01 (88) 08/26/18 8.0 17:07 Intake and Output 08/26/18 08/26/18 08/27/18 1515:00 23:00 07:00 IntakeIntake Total 1400 ml 1240 ml BalanceBalance 1400 ml 1240 ml Results Results 24hrs Laboratory Tests Test 08/27/18 04:25 White Blood Count 6.4 Red Blood Count 3.91 L Hemoglobin 11.2 L Hematocrit 34.2 L Mean Corpuscular Volume 87.5 Mean Corpuscular Hemoglobin 28.6 L Mean Corpuscular Hemoglobin Concent 32.7 Red Cell Distribution Width 12.8 Platelet Count 249 Mean Platelet Volume 10.5 H Immature Granulocytes % 0.300 Neutrophils % 86.8 H Lymphocytes % 11.0 L Monocytes % 1.7 Eosinophils % 0.0 Basophils % 0.2 Nucleated Red Blood Cells % 0.0 Immature Granulocytes # 0.020 Neutrophils # 5.5 Lymphocytes # 0.7 L Monocytes # 0.1 L Eosinophils # 0.0 Basophils # 0.0 Nucleated Red Blood Cells # 0.0 Sodium Level 140 Potassium Level 3.8 Chloride Level 108 Carbon Dioxide Level 25 Anion Gap 7 Blood Urea Nitrogen 7 Creatinine 0.47 Est Glomerular Filtrat Rate mL/min > 60 Glucose Level 111 Calcium Level 8.9 Total Bilirubin 0.0 L Direct Bilirubin 0.00 Indirect Bilirubin 0.0 Aspartate Amino Transf (AST/SGOT) 152 H Alanine Aminotransferase (ALT/SGPT) 342 H Alkaline Phosphatase 165 H Total Protein 6.9 Albumin 3.6 Globulin 3.30 H Albumin/Globulin Ratio 1.09 Medications Medication Current Medications IV Flush (NS 3 ml) 3 ml PER PROTOCOL IV ; Start 08/25/18 at 00:00 Ondansetron HCl (Zofran Inj) 4 mg Q6H PRN IV NAUSEA/VOMITING; Start 08/25/18 at 00:00 Hydromorphone HCl (Dilaudid) 0.5 mg Q4H PRN IV .SEVERE PAIN 7-10 Last administered on 08/25/18at 00:22; Admin Dose 0.5 MG; Start 08/25/18 at 00:00 Docusate Sodium (Colace) 100 mg Q12H PRN PO .CONSTIPATION; Start 08/25/18 at 00:00 Bisacodyl (Dulcolax) 5 mg DAILY PRN PO .CONSTIPATION; Start 08/25/18 at 00:00 Acetaminophen (Tylenol Tab) 650 mg Q6H PRN PO MILD PAIN(1-3)OR ELEVATED TEMP Last administered on 08/27/18at 10:10; Admin Dose 650 MG; Start 08/26/18 at 10:30 Nitrofurantoin Macrocrystals (Macrobid) 100 mg BID PO Last administered on 08/27/18at 09:03; Admin Dose 100 MG; Start 08/26/18 at 21:00; Stop 08/29/18 at 20:59 ANGEL MENDOSA Aug 27, 2018 10:16
[2018-08-27] MEDS ORDERED: HYDROCODONE/APAP (5/325) TAB PO PRN (10:30)
[2018-08-27] MEDS ORDERED: morphine 2 MG INJ IV PRN (10:30)
--- NOTE | 2018-08-27 11:51 | CONS ---
Assessment/Plan Assessment/Plan Assessment/Plan (Daily) Cholelithiasis, choledocholithiasis, status post ERCP with clearance of CBD. Multiple gallstones are noted and patient has been counseled the recommendation for laparoscopic cholecystectomy prior to discharge. This is to lessen the risk of further passage of gallstones which may elicit pancreatitis obstructive jaundice or cholangitis. Patient is agreeable to proceed she will be kept n.p.o. and will schedule surgery as soon as or time can be arranged Consultation Date/Type/Reason Admit Date/Time Date of Consultation: Aug 27, 2018 Type of Consult General surgery Reason for Consultation Choledocholithiasis, status post ERCP, cholelithiasis Requesting Provider: ANGEL MENDOSA Date/Time of Note DATE: 08/27/18 TIME: 11:50 Hx of Present Illness Patient admitted with abdominal pain and noted to have dilated CBD and GI consultation was obtained. Patient underwent ERCP yesterday with 2 stones were removed and patient now possible candidate for cholecystectomy. Patient states that 6 years ago she had abdominal pain and was evaluated noted to have cholelithiasis but was told to just stay on a low-fat diet and did not pursue having cholecystectomy. Past medical history significant for morbid obesity. Past surgical history section x2 and open appendectomy many years ago in [facility]. Her graph patient currently has mild discomfort in epigastrium but improved since ERCP Past Medical History Home Meds Reported Medications [None] No Conflict Check 12/16/12 Medications Current Medications IV Flush (NS 3 ml) 3 ml PER PROTOCOL IV ; Start 08/25/18 at 00:00 Ondansetron HCl (Zofran Inj) 4 mg Q6H PRN IV NAUSEA/VOMITING; Start 08/25/18 at 00:00 Docusate Sodium (Colace) 100 mg Q12H PRN PO .CONSTIPATION; Start 08/25/18 at 00:00 Bisacodyl (Dulcolax) 5 mg DAILY PRN PO .CONSTIPATION; Start 08/25/18 at 00:00 Acetaminophen (Tylenol Tab) 650 mg Q6H PRN PO MILD PAIN(1-3)OR ELEVATED TEMP Last administered on 08/27/18at 10:10; Admin Dose 650 MG; Start 08/26/18 at 10:30 Nitrofurantoin Macrocrystals (Macrobid) 100 mg BID PO Last administered on 08/27/18at 09:03; Admin Dose 100 MG; Start 08/26/18 at 21:00; Stop 08/29/18 at 20:59 Morphine Sulfate (morphine) 2 mg Q4H PRN IV SEVERE PAIN LEVEL 7-10; Start 08/27/18 at 10:30 Acetaminophen/ Hydrocodone Bitart ([place] (5/325)) 1 tab Q6H PRN PO MODERATE PAIN LEVEL 4-6; Start 08/27/18 at 10:30 Allergies: Coded Allergies: No Known Allergy (Unverified , 12/16/12) Social History Alcohol Use: none Smoking Status: Never smoker Drug Use: cocaine Exam/Review of Systems Exam Vitals Vital Signs Date Temp Pulse Resp B/P (MAP) Pulse Ox O2 O2 Flow FiO2 Time Delivery Rate 08/27/18 36.6 11:00 08/27/18 64 18 114/75 100 Room Air 08:01 (88) 08/26/18 8.0 17:07 Intake and Output 08/26/18 08/26/18 08/27/18 1515:00 23:00 07:00 IntakeIntake Total 1400 ml 1240 ml BalanceBalance 1400 ml 1240 ml Exam Awake and oriented x3. Anicteric. Lungs clear to auscultation. Heart regular rate and rhythm without gallops murmurs or rubs. Abdomen obese well-healed scars from prior surgery appendectomy. Mild tenderness right upper quadrant and epigastrium. Results Result Diagram: 08/27/18 0425 08/27/18 0425 Results 24hrs Laboratory Tests Test 08/27/18 04:25 White Blood Count 6.4 Red Blood Count 3.91 L Hemoglobin 11.2 L Hematocrit 34.2 L Mean Corpuscular Volume 87.5 Mean Corpuscular Hemoglobin 28.6 L Mean Corpuscular Hemoglobin Concent 32.7 Red Cell Distribution Width 12.8 Platelet Count 249 Mean Platelet Volume 10.5 H Immature Granulocytes % 0.300 Neutrophils % 86.8 H Lymphocytes % 11.0 L Monocytes % 1.7 Eosinophils % 0.0 Basophils % 0.2 Nucleated Red Blood Cells % 0.0 Immature Granulocytes # 0.020 Neutrophils # 5.5 Lymphocytes # 0.7 L Monocytes # 0.1 L Eosinophils # 0.0 Basophils # 0.0 Nucleated Red Blood Cells # 0.0 Sodium Level 140 Potassium Level 3.8 Chloride Level 108 Carbon Dioxide Level 25 Anion Gap 7 Blood Urea Nitrogen 7 Creatinine 0.47 Est Glomerular Filtrat Rate mL/min > 60 Glucose Level 111 Calcium Level 8.9 Total Bilirubin 0.0 L Direct Bilirubin 0.00 Indirect Bilirubin 0.0 Aspartate Amino Transf (AST/SGOT) 152 H Alanine Aminotransferase (ALT/SGPT) 342 H Alkaline Phosphatase 165 H Total Protein 6.9 Albumin 3.6 Globulin 3.30 H Albumin/Globulin Ratio 1.09 Medications Medication Current Medications IV Flush (NS 3 ml) 3 ml PER PROTOCOL IV ; Start 08/25/18 at 00:00 Ondansetron HCl (Zofran Inj) 4 mg Q6H PRN IV NAUSEA/VOMITING; Start 08/25/18 at 00:00 Docusate Sodium (Colace) 100 mg Q12H PRN PO .CONSTIPATION; Start 08/25/18 at 00:00 Bisacodyl (Dulcolax) 5 mg DAILY PRN PO .CONSTIPATION; Start 08/25/18 at 00:00 Acetaminophen (Tylenol Tab) 650 mg Q6H PRN PO MILD PAIN(1-3)OR ELEVATED TEMP Last administered on 08/27/18at 10:10; Admin Dose 650 MG; Start 08/26/18 at 10:30 Nitrofurantoin Macrocrystals (Macrobid) 100 mg BID PO Last administered on 08/27/18at 09:03; Admin Dose 100 MG; Start 08/26/18 at 21:00; Stop 08/29/18 at 20:59 Morphine Sulfate (morphine) 2 mg Q4H PRN IV SEVERE PAIN LEVEL 7-10; Start 08/27/18 at 10:30 Acetaminophen/ Hydrocodone Bitart ([place] (5/325)) 1 tab Q6H PRN PO MODERATE PAIN LEVEL 4-6; Start 08/27/18 at 10:30 NIKUNJ HASSAN MD Aug 27, 2018 11:51
[2018-08-27 14:32] VITALS: BP 103/56; PULSE 60; RESP 19
--- NOTE | 2018-08-27 14:34 | PN ---
Date/Time of Note Date/Time of Note DATE: 08/27/18 TIME: 14:32 Assessment/Plan VTE Prophylaxis Risk score (from Ns)>0 risk: 1 SCD applied (from Ns): Yes Pharmacological prophylaxis: other (scds) Lines/Catheters [facility] Peripheral IV Urinary Cath still in place: No Assessment/Plan Hospital Course Assessment: Elevated LFTs ERCP 08/26/18 Impression: Choledocholithiasis. Post sphincterotomy. Post stone removal. Cholelithiasis Hepatic steatosis. Obesity Plan: Close observation. Pt evaluated by surgery team. Plan for laparoscopic cholecystectomy near future Pt should follow up with GI as an out-pt for fibroscoring given hepatic steatosis Patient seen in collaboration with Dr. Jeter/Pam Subjective: Course reviewed with nursing staff Patient interviewed and examined All labs, imaging and other results reviewed The patient feels well, no over night events Pt denies n/v or abd pain. Plan for lap namrata in near future PHYSICAL EXAMINATION: GENERAL: Well developed, obese, alert & oriented x 3, in no acute distress SKIN: No lesions HEAD: Normocephalic, atraumatic, no tenderness. EYES: Pupils equal reactive to light, no discharge. EARS/NOSE AND THROAT: Ears normal, nose normal NECK: Supple, no masses CHEST: Inspection within normal limits. CARDIOVASCULAR: Heart: Regular rate and rhythm RESPIRATORY: Lungs clear to auscultation GASTROINTESTINAL AND LIVER: Abdomen: Soft, RUQ tenderness, non-distended, no hernias, no masses, no organomegaly, no ascites, no guarding, no rebound tenderness, normoactive bowel sounds. Rectal: Deferred. Result Diagram: 08/27/1842408/27/18 0425 Results 24hrs Laboratory Tests Test 08/27/18 04:25 White Blood Count 6.4 Red Blood Count 3.91 L Hemoglobin 11.2 L Hematocrit 34.2 L Mean Corpuscular Volume 87.5 Mean Corpuscular Hemoglobin 28.6 L Mean Corpuscular Hemoglobin Concent 32.7 Red Cell Distribution Width 12.8 Platelet Count 249 Mean Platelet Volume 10.5 H Immature Granulocytes % 0.300 Neutrophils % 86.8 H Lymphocytes % 11.0 L Monocytes % 1.7 Eosinophils % 0.0 Basophils % 0.2 Nucleated Red Blood Cells % 0.0 Immature Granulocytes # 0.020 Neutrophils # 5.5 Lymphocytes # 0.7 L Monocytes # 0.1 L Eosinophils # 0.0 Basophils # 0.0 Nucleated Red Blood Cells # 0.0 Sodium Level 140 Potassium Level 3.8 Chloride Level 108 Carbon Dioxide Level 25 Anion Gap 7 Blood Urea Nitrogen 7 Creatinine 0.47 Est Glomerular Filtrat Rate mL/min > 60 Glucose Level 111 Calcium Level 8.9 Total Bilirubin 0.0 L Direct Bilirubin 0.00 Indirect Bilirubin 0.0 Aspartate Amino Transf (AST/SGOT) 152 H Alanine Aminotransferase (ALT/SGPT) 342 H Alkaline Phosphatase 165 H Total Protein 6.9 Albumin 3.6 Globulin 3.30 H Albumin/Globulin Ratio 1.09 Exam/Review of Systems Exam Vitals Vital Signs Date Temp Pulse Resp B/P (MAP) Pulse Ox O2 O2 Flow FiO2 Time Delivery Rate 08/27/18 36.6 11:00 08/27/18 64 18 114/75 100 Room Air 08:01 (88) 08/26/18 8.0 17:07 Intake and Output 08/26/18 08/26/18 08/27/18 1515:00 23:00 07:00 IntakeIntake Total 1400 ml 1240 ml BalanceBalance 1400 ml 1240 ml Results Results 24hrs Laboratory Tests Test 08/27/18 04:25 White Blood Count 6.4 Red Blood Count 3.91 L Hemoglobin 11.2 L Hematocrit 34.2 L Mean Corpuscular Volume 87.5 Mean Corpuscular Hemoglobin 28.6 L Mean Corpuscular Hemoglobin Concent 32.7 Red Cell Distribution Width 12.8 Platelet Count 249 Mean Platelet Volume 10.5 H Immature Granulocytes % 0.300 Neutrophils % 86.8 H Lymphocytes % 11.0 L Monocytes % 1.7 Eosinophils % 0.0 Basophils % 0.2 Nucleated Red Blood Cells % 0.0 Immature Granulocytes # 0.020 Neutrophils # 5.5 Lymphocytes # 0.7 L Monocytes # 0.1 L Eosinophils # 0.0 Basophils # 0.0 Nucleated Red Blood Cells # 0.0 Sodium Level 140 Potassium Level 3.8 Chloride Level 108 Carbon Dioxide Level 25 Anion Gap 7 Blood Urea Nitrogen 7 Creatinine 0.47 Est Glomerular Filtrat Rate mL/min > 60 Glucose Level 111 Calcium Level 8.9 Total Bilirubin 0.0 L Direct Bilirubin 0.00 Indirect Bilirubin 0.0 Aspartate Amino Transf (AST/SGOT) 152 H Alanine Aminotransferase (ALT/SGPT) 342 H Alkaline Phosphatase 165 H Total Protein 6.9 Albumin 3.6 Globulin 3.30 H Albumin/Globulin Ratio 1.09 Medications Medication Current Medications IV Flush (NS 3 ml) 3 ml PER PROTOCOL IV ; Start 08/25/18 at 00:00 Ondansetron HCl (Zofran Inj) 4 mg Q6H PRN IV NAUSEA/VOMITING; Start 08/25/18 at 00:00 Docusate Sodium (Colace) 100 mg Q12H PRN PO .CONSTIPATION; Start 08/25/18 at 00:00 Bisacodyl (Dulcolax) 5 mg DAILY PRN PO .CONSTIPATION; Start 08/25/18 at 00:00 Acetaminophen (Tylenol Tab) 650 mg Q6H PRN PO MILD PAIN(1-3)OR ELEVATED TEMP Last administered on 08/27/18at 10:10; Admin Dose 650 MG; Start 08/26/18 at 10:30 Nitrofurantoin Macrocrystals (Macrobid) 100 mg BID PO Last administered on 08/27/18at 09:03; Admin Dose 100 MG; Start 08/26/18 at 21:00; Stop 08/29/18 at 20:59 Morphine Sulfate (morphine) 2 mg Q4H PRN IV SEVERE PAIN LEVEL 7-10; Start 08/27/18 at 10:30 Acetaminophen/ Hydrocodone Bitart ([place] (5/325)) 1 tab Q6H PRN PO MODERATE PAIN LEVEL 4-6; Start 08/27/18 at 10:30 RAGHAV MELENDEZ Aug 27, 2018 14:34
[2018-08-27 19:35] VITALS: BP 104/58; PULSE 72; RESP 18
[2018-08-28 02:44] VITALS: BP 106/54; PULSE 58; RESP 18
[2018-08-28 07:18] VITALS: BP 103/53; PULSE 54; RESP 18
--- NOTE | 2018-08-28 09:14 | PN ---
Date/Time of Note Date/Time of Note DATE: 08/28/18 TIME: 09:12 Assessment/Plan VTE Prophylaxis Risk score (from Ns)>0 risk: 1 SCD applied (from Ns): Yes Pharmacological prophylaxis: NA/contraindicated Pharm contraindication: low risk/ambulating Lines/Catheters IV Catheter Type (from Nrs): Saline Lock Urinary Cath still in place: No Assessment/Plan Hospital Course S: no new issues, NPO for surgery today O: Constitutional: alert, oriented,no distress Head: atraumatic, normocephalic Neck: non-tender, supple Respiratory: clear to auscultation Cardiovascular: regular rate and rhythm Gastrointestinal: S/ NT / ND / +BS Extremities: no edema, good radial pulses assessment and plan: #1 Symptomatic cholelithiasis with choledocholithiasis s/p ERCP with sphincterotomy and stone removal. - Lap namrata today -continue supportive care and pain control -Transaminitis 2/2 choledocholithiasis improving #2 Possible UTI: -continue with macrobid #3: obesity: counselled on diet and exercise Result Diagram: 08/28/18 0426 08/28/18 0426 Results 24hrs Laboratory Tests Test 08/28/18 04:26 White Blood Count 6.0 Red Blood Count 3.80 L Hemoglobin 10.8 L Hematocrit 33.5 L Mean Corpuscular Volume 88.2 Mean Corpuscular Hemoglobin 28.4 L Mean Corpuscular Hemoglobin Concent 32.2 Red Cell Distribution Width 13.2 Platelet Count 247 Mean Platelet Volume 10.6 H Immature Granulocytes % 0.300 Neutrophils % 53.7 Lymphocytes % 39.6 Monocytes % 5.8 Eosinophils % 0.3 Basophils % 0.3 Nucleated Red Blood Cells % 0.0 Immature Granulocytes # 0.020 Neutrophils # 3.2 Lymphocytes # 2.4 Monocytes # 0.4 Eosinophils # 0.0 Basophils # 0.0 Nucleated Red Blood Cells # 0.0 Sodium Level 141 Potassium Level 3.5 Chloride Level 106 Carbon Dioxide Level 27 Anion Gap 8 Blood Urea Nitrogen 10 Creatinine 0.52 Est Glomerular Filtrat Rate mL/min > 60 Glucose Level 95 Calcium Level 8.3 L Total Bilirubin 0.0 L Direct Bilirubin 0.00 Indirect Bilirubin 0.0 Aspartate Amino Transf (AST/SGOT) 104 H Alanine Aminotransferase (ALT/SGPT) 281 H Alkaline Phosphatase 173 H Total Protein 6.4 Albumin 3.2 L Globulin 3.20 Albumin/Globulin Ratio 1.00 Exam/Review of Systems Exam Vitals Vital Signs Date Temp Pulse Resp B/P (MAP) Pulse Ox O2 O2 Flow FiO2 Time Delivery Rate 08/28/18 98.3 54 18 103/53 99 07:18 (70) 08/27/18 Room Air 08:01 08/26/18 8.0 17:07 Intake and Output 08/27/18 08/27/18 08/28/18 1414:59 22:59 06:59 IntakeIntake Total 500 ml BalanceBalance 500 ml Results Results 24hrs Laboratory Tests Test 08/28/18 04:26 White Blood Count 6.0 Red Blood Count 3.80 L Hemoglobin 10.8 L Hematocrit 33.5 L Mean Corpuscular Volume 88.2 Mean Corpuscular Hemoglobin 28.4 L Mean Corpuscular Hemoglobin Concent 32.2 Red Cell Distribution Width 13.2 Platelet Count 247 Mean Platelet Volume 10.6 H Immature Granulocytes % 0.300 Neutrophils % 53.7 Lymphocytes % 39.6 Monocytes % 5.8 Eosinophils % 0.3 Basophils % 0.3 Nucleated Red Blood Cells % 0.0 Immature Granulocytes # 0.020 Neutrophils # 3.2 Lymphocytes # 2.4 Monocytes # 0.4 Eosinophils # 0.0 Basophils # 0.0 Nucleated Red Blood Cells # 0.0 Sodium Level 141 Potassium Level 3.5 Chloride Level 106 Carbon Dioxide Level 27 Anion Gap 8 Blood Urea Nitrogen 10 Creatinine 0.52 Est Glomerular Filtrat Rate mL/min > 60 Glucose Level 95 Calcium Level 8.3 L Total Bilirubin 0.0 L Direct Bilirubin 0.00 Indirect Bilirubin 0.0 Aspartate Amino Transf (AST/SGOT) 104 H Alanine Aminotransferase (ALT/SGPT) 281 H Alkaline Phosphatase 173 H Total Protein 6.4 Albumin 3.2 L Globulin 3.20 Albumin/Globulin Ratio 1.00 Medications Medication Current Medications IV Flush (NS 3 ml) 3 ml PER PROTOCOL IV ; Start 08/25/18 at 00:00 Ondansetron HCl (Zofran Inj) 4 mg Q6H PRN IV NAUSEA/VOMITING; Start 08/25/18 at 00:00 Docusate Sodium (Colace) 100 mg Q12H PRN PO .CONSTIPATION; Start 08/25/18 at 00:00 Bisacodyl (Dulcolax) 5 mg DAILY PRN PO .CONSTIPATION; Start 08/25/18 at 00:00 Acetaminophen (Tylenol Tab) 650 mg Q6H PRN PO MILD PAIN(1-3)OR ELEVATED TEMP Last administered on 08/27/18at 10:10; Admin Dose 650 MG; Start 08/26/18 at 10:30 Nitrofurantoin Macrocrystals (Macrobid) 100 mg BID PO Last administered on 08/27/18at 20:58; Admin Dose 100 MG; Start 08/26/18 at 21:00; Stop 08/29/18 at 20:59 Morphine Sulfate (morphine) 2 mg Q4H PRN IV SEVERE PAIN LEVEL 7-10; Start 08/27/18 at 10:30 Acetaminophen/ Hydrocodone Bitart ([place] (5/325)) 1 tab Q6H PRN PO MODERATE PAIN LEVEL 4-6; Start 08/27/18 at 10:30 ANGEL MENDOSA Aug 28, 2018 09:14
[2018-08-28] MEDS: NITROFURANTOIN (SR) 100 MG CAP PO SCH ×2 (10:03→22:14)
[2018-08-28] MEDS: DEXTROSE 5%-0.45% NACL 1,000 ML IV SCH ×2 (10:44→20:30)
[2018-08-28 14:41] VITALS: BP 117/71; PULSE 56; RESP 18
--- NOTE | 2018-08-28 14:51 | PN ---
Date/Time of Note Date/Time of Note DATE: 08/28/18 TIME: 14:49 Assessment/Plan VTE [place]axis [place] [facility] [place]: 1 [place] [facility] [place] Yes Pharmacological prophylaxis: other (scds) Lines/Catheters IV [facility]atheter Type (from [facility]): Saline Lock Urinary Cath still in place: No Assessment/Plan Hospital Course Assessment: Elevated LFTs ERCP 08/26/18 Impression: Choledocholithiasis. Post sphincterotomy. Post stone removal. Cholelithiasis Hepatic steatosis. Obesity Plan: NPO Possible lap cholecystectomy today Pt should follow up with GI as an out-pt for fibroscoring given hepatic steatosis No new GI recommendations today Patient seen in collaboration with Dr. Jeter/Pam Subjective: Course reviewed with nursing staff Patient interviewed and examined All labs, imaging and other results reviewed No over night events Pt denies n/v or abdominal pain Patient awaiting possible sx today PHYSICAL EXAMINATION: GENERAL: Well developed, obese, alert & oriented x 3, in no acute distress SKIN: No lesions HEAD: Normocephalic, atraumatic, no tenderness. EYES: Pupils equal reactive to light, no discharge. EARS/NOSE AND THROAT: Ears normal, nose normal NECK: Supple, no masses CHEST: Inspection within normal limits. CARDIOVASCULAR: Heart: Regular rate and rhythm RESPIRATORY: Lungs clear to auscultation GASTROINTESTINAL AND LIVER: Abdomen: Soft, RUQ tenderness, non-distended, no hernias, no masses, no organomegaly, no ascites, no guarding, no rebound tenderness, normoactive bowel sounds. Rectal: Deferred. Result Diagram: 08/28/18 0426 08/28/18 0426 Results 24hrs Laboratory Tests Test 08/28/18 04:26 White Blood Count 6.0 Red Blood Count 3.80 L Hemoglobin 10.8 L Hematocrit 33.5 L Mean Corpuscular Volume 88.2 Mean Corpuscular Hemoglobin 28.4 L Mean Corpuscular Hemoglobin Concent 32.2 Red Cell Distribution Width 13.2 Platelet Count 247 Mean Platelet Volume 10.6 H Immature Granulocytes % 0.300 Neutrophils % 53.7 Lymphocytes % 39.6 Monocytes % 5.8 Eosinophils % 0.3 Basophils % 0.3 Nucleated Red Blood Cells % 0.0 Immature Granulocytes # 0.020 Neutrophils # 3.2 Lymphocytes # 2.4 Monocytes # 0.4 Eosinophils # 0.0 Basophils # 0.0 Nucleated Red Blood Cells # 0.0 Sodium Level 141 Potassium Level 3.5 Chloride Level 106 Carbon Dioxide Level 27 Anion Gap 8 Blood Urea Nitrogen 10 Creatinine 0.52 Est Glomerular Filtrat Rate mL/min > 60 Glucose Level 95 Calcium Level 8.3 L Total Bilirubin 0.0 L Direct Bilirubin 0.00 Indirect Bilirubin 0.0 Aspartate Amino Transf (AST/SGOT) 104 H Alanine Aminotransferase (ALT/SGPT) 281 H Alkaline Phosphatase 173 H Total Protein 6.4 Albumin 3.2 L Globulin 3.20 Albumin/Globulin Ratio 1.00 Exam/Review of Systems Exam Vitals Vital Signs Date Temp Pulse Resp B/P (MAP) Pulse Ox O2 O2 Flow FiO2 Time Delivery Rate 08/28/18 98.0 56 18 117/71 99 Room Air 14:41 (86) 08/26/18 8.0 17:07 Intake and Output 08/27/18 08/27/18 08/28/18 1515:00 23:00 07:00 IntakeIntake Total 500 ml BalanceBalance 500 ml Results Results 24hrs Laboratory Tests Test 08/28/18 04:26 White Blood Count 6.0 Red Blood Count 3.80 L Hemoglobin 10.8 L Hematocrit 33.5 L Mean Corpuscular Volume 88.2 Mean Corpuscular Hemoglobin 28.4 L Mean Corpuscular Hemoglobin Concent 32.2 Red Cell Distribution Width 13.2 Platelet Count 247 Mean Platelet Volume 10.6 H Immature Granulocytes % 0.300 Neutrophils % 53.7 Lymphocytes % 39.6 Monocytes % 5.8 Eosinophils % 0.3 Basophils % 0.3 Nucleated Red Blood Cells % 0.0 Immature Granulocytes # 0.020 Neutrophils # 3.2 Lymphocytes # 2.4 Monocytes # 0.4 Eosinophils # 0.0 Basophils # 0.0 Nucleated Red Blood Cells # 0.0 Sodium Level 141 Potassium Level 3.5 Chloride Level 106 Carbon Dioxide Level 27 Anion Gap 8 Blood Urea Nitrogen 10 Creatinine 0.52 Est Glomerular Filtrat Rate mL/min > 60 Glucose Level 95 Calcium Level 8.3 L Total Bilirubin 0.0 L Direct Bilirubin 0.00 Indirect Bilirubin 0.0 Aspartate Amino Transf (AST/SGOT) 104 H Alanine Aminotransferase (ALT/SGPT) 281 H Alkaline Phosphatase 173 H Total Protein 6.4 Albumin 3.2 L Globulin 3.20 Albumin/Globulin Ratio 1.00 Medications Medication Current Medications IV Flush (NS 3 ml) 3 ml PER PROTOCOL IV ; Start 08/25/18 at 00:00 Ondansetron HCl (Zofran Inj) 4 mg Q6H PRN IV NAUSEA/VOMITING; Start 08/25/18 at 00:00 Docusate Sodium (Colace) 100 mg Q12H PRN PO .CONSTIPATION; Start 08/25/18 at 00:00 Bisacodyl (Dulcolax) 5 mg DAILY PRN PO .CONSTIPATION; Start 08/25/18 at 00:00 Acetaminophen (Tylenol Tab) 650 mg Q6H PRN PO MILD PAIN(1-3)OR ELEVATED TEMP Last administered on 08/27/18at 10:10; Admin Dose 650 MG; Start 08/26/18 at 10:30 Nitrofurantoin Macrocrystals (Macrobid) 100 mg BID PO Last administered on 08/28at 10:03; Admin Dose 100 MG; Start 08/26/18 at 21:00; Stop 08/29/18 at 20:59 Morphine Sulfate (morphine) 2 mg Q4H PRN IV SEVERE PAIN LEVEL 7-10; Start 08/27/18 at 10:30 Acetaminophen/ Hydrocodone Bitart ([place] (5/325)) 1 tab Q6H PRN PO MODERATE PAIN LEVEL 4-6; Start 08/27/18 at 10:30 Dextrose/Sodium Chloride 1,000 ml @ 100 mls/hr Q10H IV Last administered on 08/28/18at 10:44; Admin Dose 100 MLS/HR; Start 08/28/18 at 10:30 RAGHAV MELENDEZ Aug 28, 2018 14:51
--- NOTE | 2018-08-28 19:37 | PAC ---
Date/Time of Note Date/Time of Note DATE: 08/28/18 TIME: 19:37 Post-Anesthesia Notes Post-Anesthesia Note Last documented vital signs Vital Signs Date Temp Pulse Resp B/P (MAP) Pulse Ox O2 O2 Flow FiO2 Time Delivery Rate 08/28/18 98.0 56 18 117/71 99 Room Air 14:41 (86) 08/26/18 8.0 17:07 Activity: WNL Respiratory function: WNL Cardiovascular function: WNL Mental status: Baseline Pain reasonably controlled: Yes Hydration appropriate: Yes Nausea/Vomiting absent: Yes Evgeny Gonzalez M.D. Aug 28, 2018 19:37
[2018-08-28 19:50] VITALS: BP 93/53; PULSE 59; RESP 18
[2018-08-29] VITALS (17 sets, daily range): BP systolic 101–127; BP diastolic 51–73; PULSE 60–82; RESP 12–21
[2018-08-29] MEDS: DEXTROSE 5%-0.45% NACL 1,000 ML IV SCH (01:34)
--- NOTE | 2018-08-29 06:46 | PN ---
Date/Time of Note Date/Time of Note DATE: 08/29/18 TIME: 06:44 Assessment/Plan VTE Prophylaxis Risk score (from Ns)>0 risk: 1 SCD applied (from Nsg): Yes Pharmacological prophylaxis: NA/contraindicated Pharm contraindication: low risk/ambulating Lines/Catheters IV Catheter Type (from Nrsg): Peripheral IV Urinary Cath still in place: No Assessment/Plan Hospital Course S: no new issues, surgery was moved to this morning O: Constitutional: alert, oriented,no distress Head: atraumatic, normocephalic Neck: non-tender, supple Respiratory: clear to auscultation Cardiovascular: regular rate and rhythm Gastrointestinal: S/ NT / ND / +BS Extremities: no edema, good radial pulses assessment and plan: #1 Symptomatic cholelithiasis with choledocholithiasis s/p ERCP with sphinc terotomy and stone removal. - Lap namrata hopefully today -continue supportive care and pain control -Transaminitis 2/2 choledocholithiasis improving #2 Possible UTI: -continue with macrobid, completed today #3: obesity: counselled on diet and exercise dispo: evaluate post op and begin discharge planning Result Diagram: 08/28/1842508/28/18 0426 Exam/Review of Systems Exam Vitals Vital Signs Date Temp Pulse Resp B/P (MAP) Pulse Ox O2 O2 Flow FiO2 Time Delivery Rate 08/29/18 98.0 65 18 101/51 98 02:42 (68) 08/28/18 Room Air 14:41 08/26/18 8.0 17:07 Intake and Output 08/28/18 08/28/18 08/29/18 1515:00 23:00 07:00 IntakeIntake Total 750 ml 950 ml BalanceBalance 750 ml 950 ml Medications Medication Current Medications IV Flush (NS 3 ml) 3 ml PER PROTOCOL IV ; Start 08/25/18 at 00:00 Ondansetron HCl (Zofran Inj) 4 mg Q6H PRN IV NAUSEA/VOMITING; Start 08/25/18 at 00:00 Docusate Sodium (Colace) 100 mg Q12H PRN PO .CONSTIPATION; Start 08/25/18 at 00:00 Bisacodyl (Dulcolax) 5 mg DAILY PRN PO .CONSTIPATION; Start 08/25/18 at 00:00 Acetaminophen (Tylenol Tab) 650 mg Q6H PRN PO MILD PAIN(1-3)OR ELEVATED TEMP Last administered on 08/27/18at 10:10; Admin Dose 650 MG; Start 08/26/18 at 10:30 Nitrofurantoin Macrocrystals (Macrobid) 100 mg BID PO Last administered on 08/28/18at 22:14; Admin Dose 100 MG; Start 08/26/18 at 21:00; Stop 08/29/18 at 20:59 Morphine Sulfate (morphine) 2 mg Q4H PRN IV SEVERE PAIN LEVEL 7-10; Start 08/27/18 at 10:30 Acetaminophen/ Hydrocodone Bitart ([place] (5/325)) 1 tab Q6H PRN PO MODERATE PAIN LEVEL 4-6; Start 08/27/18 at 10:30 Dextrose/Sodium Chloride 1,000 ml @ 100 mls/hr Q10H IV Last administered on 08/29/18at 01:34; Admin Dose 100 MLS/HR; Start 08/28/18 at 10:30 ANGEL MENDOSA Aug 29, 2018 06:46
[2018-08-29] MEDS: NITROFURANTOIN (SR) 100 MG CAP PO SCH (09:00)
[2018-08-29] MEDS ORDERED: LIDOCAINE 1%/EPI (1:100,000) (MDV) 20 ML ONE (10:42)
[2018-08-29] MEDS ORDERED: BUPIVACAINE 0.25% (MPF) 30 ML INJ ONE (10:42)
--- NOTE | 2018-08-29 10:42 | PREAC ---
Date/Time of Note Date/Time of Note DATE: 08/29/18 TIME: 10:41 Anesthesia Eval and Record Evaluation Time Pre-Procedure Interview DATE: 08/29/18 TIME: 10:41 Age 37 Sex female NPO: 8 hrs Preoperative diagnosis Gallstones Planned procedure Lap Tania Past Medical History Past Medical History: Includes GI: Morbid obesity Surgery & Anesthesia Issues No known issue Meds Anticoagulation: No Beta Kahlil within 24 hr: No Reason Beta Kahlil not given: Pt. not on B-Kahlil Reported Medications [None] No Conflict Check 12/16/12 Current Medications IV Flush (NS 3 ml) 3 ml PER PROTOCOL IV ; Start 08/25/18 at 00:00 Ondansetron HCl (Zofran Inj) 4 mg Q6H PRN IV NAUSEA/VOMITING; Start 08/25/18 at 00:00 Docusate Sodium (Colace) 100 mg Q12H PRN PO .CONSTIPATION; Start 08/25/18 at 00:00 Bisacodyl (Dulcolax) 5 mg DAILY PRN PO .CONSTIPATION; Start 08/25/18 at 00:00 Acetaminophen (Tylenol Tab) 650 mg Q6H PRN PO MILD PAIN(1-3)OR ELEVATED TEMP Last administered on 08/27/18at 10:10; Admin Dose 650 MG; Start 08/26/18 at 10:30 Nitrofurantoin Macrocrystals (Macrobid) 100 mg BID PO Last administered on 08/28/18at 22:14; Admin Dose 100 MG; Start 08/26/18 at 21:00; Stop 08/29/18 at 20:59 Morphine Sulfate (morphine) 2 mg Q4H PRN IV SEVERE PAIN LEVEL 7-10; Start 08/27/18 at 10:30 Acetaminophen/ Hydrocodone Bitart (Dante (5/325)) 1 tab Q6H PRN PO MODERATE PAIN LEVEL 4-6; Start 08/27/18 at 10:30 Dextrose/Sodium Chloride 1,000 ml @ 100 mls/hr Q10H IV Last administered on 08/29/18at 01:34; Admin Dose 100 MLS/HR; Start 08/28/18 at 10:30 Meds reviewed: Yes Allergies Coded Allergies: No Known Allergy (Unverified , 12/16/12) Allergies Reviewed: Yes Labs/Studies Labs Reviewed: Reviewed by anesthesiologist Result Diagram: 08/28/18 0426 08/28/186 test: Negative Pre-procedure Exam Last vitals Vital Signs Date Temp Pulse Resp B/P (MAP) Pulse Ox O2 O2 Flow FiO2 Time Delivery Rate 08/29/18 98.1 72 19 127/62 96 07:39 (83) 08/28/18 Room Air 14:41 08/26/18 8.0 17:07 Airway: Adequate mouth opening, Adequate thyromental dist Mallampati: Mallampati II Teeth: Normal Lung: Normal Heart: Normal ASA Physical Status ASA physical status: 2 Emergency: None Planned Anesthetic General/MAC: ETT Pre-operative Attestations Prior to commencing anesthesia and surgery, the patient was re-evaluated, there was verification of: *The patient's identity *The results of appropriate recent lab work and preoperative vital signs *The above evaluation not changing prior to induction *Anesthetic plan, risk benefits, alternative and complications discussed with patient/family; questions answered; patient/family understands, accepts and wishes to proceed. SAMANTAH VARELA Aug 29, 2018 10:42
[2018-08-29] MEDS ORDERED: HYDROmorphONE 1 MG/5 ML IV SYRINGE IV PRN ×2 (11:00)
[2018-08-29] MEDS ORDERED: DIPHENHYDRAMINE 50 MG INJ IV PRN (11:00)
[2018-08-29] MEDS ORDERED: ONDANSETRON 4 MG INJ IV PRN ×2 (11:00→13:30)
[2018-08-29] MEDS ORDERED: METOCLOPRAMIDE 10 MG INJ IV PRN (11:00)
[2018-08-29] MEDS ORDERED: ALBUTEROL 0.083% (NEB) 2.5 MG/3 ML AMP HHN PRN (11:00)
[2018-08-29] MEDS ORDERED: FENTAnyl 50 MCG/ML VIAL IV PRN ×2 (11:00)
[2018-08-29] MEDS ORDERED: MEPERIDINE 25 MG INJ IV PRN (11:00)
[2018-08-29] MEDS ORDERED: FENTAnyl 50 MCG/ML VIAL ONE ×2 (11:01→11:59)
[2018-08-29] MEDS ORDERED: ROPIVACAINE 0.5 % 30 ML VIAL ONE (11:02)
[2018-08-29] MEDS ORDERED: LABETALOL HCL 20MG INJ ONE (11:45)
[2018-08-29] MEDS ORDERED: SUCCINYLCHOLINE CHLORIDE 100 MG/5 ML SYG IV ONE (11:45)
[2018-08-29] MEDS ORDERED: ROCURONIUM 50 MG INJ ONE (11:45)
[2018-08-29] MEDS ORDERED: LIDOCAINE 100 MG SYRINGE ONE (11:45)
[2018-08-29] MEDS ORDERED: PROPOFOL 20 ML ONE (11:45)
[2018-08-29] MEDS ORDERED: CEFAZOLIN 1 GM INJ ONE (11:45)
[2018-08-29] MEDS ORDERED: SUGAMMADEX SODIUM 200 MG/2 ML VIAL IV ONE (12:45)
--- NOTE | 2018-08-29 13:04 | OPR ---
Date/Time of Note Date/Time of Note DATE: 08/29/18 TIME: 12:58 Operative Report Free Text/Dictation Operative report Procedure Date: Aug 29, 2018 Preoperative Diagnosis Cholelithiasis choledocholithiasis cholecystitis Postoperative Diagnosis Same Operation/Procedure Performed Laparoscopic cholecystectomy Surgeon Nikunj River MD see signature line Board Winder None Anesthesia Type: general Anesthesiologist: SAMANTHA VARELA Estimated Blood Loss: 10 - 50 ml's Transfusion none Specimen Gallbladder and content Grafts/Implants none Tubes/Drains None Complications none Pt Condition Post Procedure: stable Disposition: PACU Indications Patient with worsening abdominal pain presented to the emergency room where and then admitted for gallstone noted in common bile duct with choledocholithiasis cholelithiasis and cholecystitis. Patient underwent ERCP 2 days ago and is now clear the duct is cleared and ready for recommended procedure of laparoscopic x- ray. Risk benefits alternatives were discussed postoperative expectations were reviewed. Procedure Description Patient brought to the operating room placed supine position general she is administered with a ventricular ablation patient was prepped and draped in standard sterile fashion. Tap block was performed by anesthesia the beginning of the procedure. A timeout was completed. An orogastric tube was inserted and the varies needle was used left upper quadrant at Lange's point insufflation delivered to maintain pneumoperitoneum at 15 mmHg throughout the procedure. Small stab incisions made approximately 5 cm cephalad of the umbilicus and a 5 mm trocar was inserted direct visualization with a 30 degree 5 mm laparoscope. The version was identified removed after confirming there was no injury or bleeding. An epigastric incision was made next to accommodate an 11 mm trocar and 2 right- sided 5 mm trochars. A Prashant arm self-retaining retractor was placed in the side of the operating table. Atraumatic grasper used to grasp the fundus of the gallbladder and retracted up over the edge of the right lobe of the liver. A second grasper Garrett's pouch and hook cautery was used to score the peritoneum to facilitate dissecting the neck of the gallbladder. Suction irrigation was also used bluntly. The cystic duct was identified skeletonized just at the junction of the gallbladder. There are small bleeder on the posterior surface on the right lateral by the hepatic bed which was controlled with hemoclips. 2 clips were then placed on the patient's side of the cystic duct and one on the gallbladder side and divided. In a similar fashion the cystic artery was identified and was skeletonized and double clipped proximally 1 distally and then divided. The gallbladder was somewhat intrahepatic along the fundus and there was some oozing along the liver bed. The gallbladder was taken off completely off the liver bed. A specimen bag was then inserted through the epigastric port and the gallbladder placed and this was brought up through that wound and fascial incision had to be enlarged to accommodate was appreciated large stone and large distended thickened gallbladder. Trocar was then reinserted and inspection for hemostasis showed there is slight oozing along the liver bed and this was controlled with monopolar cautery. A secondary reinforcement 5 cc of FloSeal were applied along the liver bed. The operative field was then irrigated and aspirated until clear. The insufflation halted the pneumoperitoneum was allowed to escape the trochars were removed the fascial incision was closed with an 0 Ethibond suture and all incisions were closed with buried subcuticular 4-0 Monocryl the epigastric incision was closed with a second layer of 3-0 Vicryl Patient was explained in the operative brought recovery in stable condition graph sponge needle count correct x2 NIKUNJ RIVER MD Aug 29, 2018 13:04
[2018-08-29] MEDS: HYDROmorphONE 1 MG/5 ML IV SYRINGE IV PRN ×2 (13:22→13:52)
[2018-08-29] MEDS: D5W-0.45 NACL + KCL 20 MEQ 1,000 ML IV SCH ×2 (18:35→23:04)
[2018-08-30 02:13] VITALS: BP 99/54; PULSE 72; RESP 18
[2018-08-30] MEDS: D5W-0.45 NACL + KCL 20 MEQ 1,000 ML IV SCH ×3 (04:13→19:04)
[2018-08-30] MEDS: ACETAMINOPHEN 325 MG TAB PO PRN ×3 (05:49→22:51)
[2018-08-30] MEDS: ENOXAPARIN 40 MG/0.4 ML SYG SC SCH (06:47)
[2018-08-30 07:45] VITALS: BP 98/50; PULSE 84; RESP 18
[2018-08-30] MEDS ORDERED: POTASSIUM CHLORIDE (SR) 20 MEQ TAB PO STA (12:15)
--- NOTE | 2018-08-30 12:23 | PN ---
Date/Time of Note Date/Time of Note DATE: 08/30/18 TIME: 12:20 Assessment/Plan VTE Prophylaxis Risk score (from Ns)>0 risk: 1 SCD applied (from [place]): No SCD contraindicated: other Pharmacological prophylaxis: LMWH Lines/Catheters IV C[facility]ter Type (from [facility]): Peripheral IV Urinary Cath still in place: No Assessment/Plan Hospital Course S: Patient had cholecystectomy performed yesterday, now on diet tolerating well, has not passed gas yet. O: Constitutional: alert, oriented ambulating presently Head: atraumatic, normocephalic Neck: non-tender, supple Respiratory: clear to auscultation Cardiovascular: regular rate and rhythm Gastrointestinal: S/ NT / ND / +BS Extremities: no edema, good radial pulses Date/Time of Note Date/Time of Note DATE: 08/29/18 TIME: 12:58 Operative Report Free Text/Dictation Operative report Procedure Date: Aug 29, 2018 Preoperative Diagnosis Cholelithiasis choledocholithiasis cholecystitis Postoperative Diagnosis Same Operation/Procedure Performed Laparoscopic cholecystectomy Assessment and plan: 37-year-old female who presents with: #1 Symptomatic cholelithiasis- with choledocholithiasis s/p ERCP with sphincterotomy and stone removal. Status post lap namrata postop day #1 -Continue postop care, pain control -Diet per GI and surgery recommendations #2 Possible UTI:-Status post treatment with Macrobid -Monitor for now #3: obesity: counselled on diet and exercise dispo: DC planning when cleared by marketing operations consultant teams Result Diagram: 08/30/18 0432 08/30/18 0432 Results 24hrs Laboratory Tests Test 08/30/18 04:32 White Blood Count 8.3 # Red Blood Count 4.16 L Hemoglobin 11.8 L Hematocrit 37.0 Mean Corpuscular Volume 88.9 Mean Corpuscular Hemoglobin 28.4 L Mean Corpuscular Hemoglobin Concent 31.9 L Red Cell Distribution Width 13.2 Platelet Count 267 Mean Platelet Volume 10.1 Immature Granulocytes % 0.400 Neutrophils % 76.0 Lymphocytes % 17.7 Monocytes % 5.6 Eosinophils % 0.1 Basophils % 0.2 Nucleated Red Blood Cells % 0.0 Immature Granulocytes # 0.030 Neutrophils # 6.3 Lymphocytes # 1.5 Monocytes # 0.5 Eosinophils # 0.0 Basophils # 0.0 Nucleated Red Blood Cells # 0.0 Sodium Level 139 Potassium Level 3.3 L Chloride Level 105 Carbon Dioxide Level 28 Anion Gap 6 Blood Urea Nitrogen 3 L Creatinine 0.47 Est Glomerular Filtrat Rate mL/min > 60 Glucose Level 103 Calcium Level 8.5 Total Bilirubin 0.2 Direct Bilirubin 0.00 Indirect Bilirubin 0.2 Aspartate Amino Transf (AST/SGOT) 76 H Alanine Aminotransferase (ALT/SGPT) 177 H Alkaline Phosphatase 147 H Total Protein 6.8 Albumin 3.6 Globulin 3.20 Albumin/Globulin Ratio 1.12 Exam/Review of Systems Exam Vitals Vital Signs Date Temp Pulse Resp B/P (MAP) Pulse Ox O2 O2 Flow FiO2 Time Delivery Rate 08/30/18 99.0 84 18 98/50 (66) 92 Room Air 07:45 08/29/18 2.0 17:10 Intake and Output 08/29/18 08/29/18 08/30/18 1515:00 23:00 07:00 IntakeIntake Total 1300 ml 200 ml 1075 ml OutputOutput Total 5 ml BalanceBalance 1295 ml 200 ml 1075 ml Results Results 24hrs Laboratory Tests Test 08/30/18 04:32 White Blood Count 8.3 # Red Blood Count 4.16 L Hemoglobin 11.8 L Hematocrit 37.0 Mean Corpuscular Volume 88.9 Mean Corpuscular Hemoglobin 28.4 L Mean Corpuscular Hemoglobin Concent 31.9 L Red Cell Distribution Width 13.2 Platelet Count 267 Mean Platelet Volume 10.1 Immature Granulocytes % 0.400 Neutrophils % 76.0 Lymphocytes % 17.7 Monocytes % 5.6 Eosinophils % 0.1 Basophils % 0.2 Nucleated Red Blood Cells % 0.0 Immature Granulocytes # 0.030 Neutrophils # 6.3 Lymphocytes # 1.5 Monocytes # 0.5 Eosinophils # 0.0 Basophils # 0.0 Nucleated Red Blood Cells # 0.0 Sodium Level 139 Potassium Level 3.3 L Chloride Level 105 Carbon Dioxide Level 28 Anion Gap 6 Blood Urea Nitrogen 3 L Creatinine 0.47 Est Glomerular Filtrat Rate mL/min > 60 Glucose Level 103 Calcium Level 8.5 Total Bilirubin 0.2 Direct Bilirubin 0.00 Indirect Bilirubin 0.2 Aspartate Amino Transf (AST/SGOT) 76 H Alanine Aminotransferase (ALT/SGPT) 177 H Alkaline Phosphatase 147 H Total Protein 6.8 Albumin 3.6 Globulin 3.20 Albumin/Globulin Ratio 1.12 Medications Medication Current Medications IV Flush (NS 3 ml) 3 ml PER PROTOCOL IV ; Start 08/25/18 at 00:00 Docusate Sodium (Colace) 100 mg Q12H PRN PO .CONSTIPATION; Start 08/25/18 at 00:00 Bisacodyl (Dulcolax) 5 mg DAILY PRN PO .CONSTIPATION; Start 08/25/18 at 00:00 Acetaminophen/ Hydrocodone Bitart ([place] (5/325)) 1 tab Q6H PRN PO MODERATE PAIN LEVEL 4-6 Last administered on 08/29/18at 16:23; Admin Dose 1 TAB; Start 08/27/18 at 10:30 Ondansetron HCl (Zofran Inj) 4 mg Q6H PRN IV NAUSEA AND/OR VOMITING; Start 08/29/18 at 13:30 Acetaminophen (Tylenol Tab) 650 mg Q6H PRN PO MILD PAIN(1-3)OR ELEVATED TEMP Last administered on 08/30/18at 05:49; Admin Dose 650 MG; Start 08/29/18 at 13:30 Potassium Chloride/Dextrose/ Sod Cl 1,000 ml @ 100 mls/hr Q10H IV Last adminis tered on 08/30/18at 04:13; Admin Dose 100 MLS/HR; Start 08/29/18 at 13:04 Enoxaparin Sodium (Lovenox) 40 mg DAILY@07 SC ; Start 08/30/18 at 07:00 Potassium Chloride (Klor-Con 20) 40 meq ONCE STAT PO ; Start 08/30/18 at 12:15; Stop 08/30/18 at 12:16; Status GIDEON BALDERAS Aug 30, 2018 12:23
--- NOTE | 2018-08-30 12:47 | PN ---
Date/Time of Note Date/Time of Note DATE: 08/30/18 TIME: 12:45 Assessment/Plan VTE Prophylaxis Risk score (from Ns)>0 risk: 1 SCD applied (from [facility] [place]): No SCD contraindicated: other (scds) Pharmacological prophylaxis: other (scds) Lines/Catheters IV Catheter Type (from [facility]): Peripheral IV Urinary Cath still in place: No Assessment/Plan Hospital Course Assessment: Elevated LFTs - trending down ERCP 08/26/18 Impression: Choledocholithiasis. Post sphincterotomy. Post stone removal. Cholelithiasis -S/p Lap cholecystectomy Hepatic steatosis. Obesity Plan: Pt cleared from GI point of view for d/c We will sing off Patient seen in collaboration with Dr. Jeter/Pam Subjective: Course reviewed with nursing staff Patient interviewed and examined All labs, imaging and other results reviewed No over night events pt ambulating the halls, michelet diet well, she has not yet passed flatus PHYSICAL EXAMINATION: GENERAL: Well developed, obese, alert & oriented x 3, in no acute distress SKIN: No lesions HEAD: Normocephalic, atraumatic, no tenderness. EYES: Pupils equal reactive to light, no discharge. EARS/NOSE AND THROAT: Ears normal, nose normal NECK: Supple, no masses CHEST: Inspection within normal limits. CARDIOVASCULAR: Heart: Regular rate and rhythm RESPIRATORY: Lungs clear to auscultation GASTROINTESTINAL AND LIVER: Abdomen: Soft, RUQ tenderness, non-distended, no hernias, no masses, no organomegaly, no ascites, no guarding, no rebound tenderness, normoactive bowel sounds. Rectal: Deferred. Result Diagram: 08/30/18 0432 08/30/18 0432 Results 24hrs Laboratory Tests Test 08/30/18 04:32 White Blood Count 8.3 # Red Blood Count 4.16 L Hemoglobin 11.8 L Hematocrit 37.0 Mean Corpuscular Volume 88.9 Mean Corpuscular Hemoglobin 28.4 L Mean Corpuscular Hemoglobin Concent 31.9 L Red Cell Distribution Width 13.2 Platelet Count 267 Mean Platelet Volume 10.1 Immature Granulocytes % 0.400 Neutrophils % 76.0 Lymphocytes % 17.7 Monocytes % 5.6 Eosinophils % 0.1 Basophils % 0.2 Nucleated Red Blood Cells % 0.0 Immature Granulocytes # 0.030 Neutrophils # 6.3 Lymphocytes # 1.5 Monocytes # 0.5 Eosinophils # 0.0 Basophils # 0.0 Nucleated Red Blood Cells # 0.0 Sodium Level 139 Potassium Level 3.3 L Chloride Level 105 Carbon Dioxide Level 28 Anion Gap 6 Blood Urea Nitrogen 3 L Creatinine 0.47 Est Glomerular Filtrat Rate mL/min > 60 Glucose Level 103 Calcium Level 8.5 Total Bilirubin 0.2 Direct Bilirubin 0.00 Indirect Bilirubin 0.2 Aspartate Amino Transf (AST/SGOT) 76 H Alanine Aminotransferase (ALT/SGPT) 177 H Alkaline Phosphatase 147 H Total Protein 6.8 Albumin 3.6 Globulin 3.20 Albumin/Globulin Ratio 1.12 Exam/Review of Systems Exam Vitals Vital Signs Date Temp Pulse Resp B/P (MAP) Pulse Ox O2 O2 Flow FiO2 Time Delivery Rate 08/30/18 99.0 84 18 98/50 (66) 92 Room Air 07:45 08/29/18 2.0 17:10 Intake and Output 08/29/18 08/29/18 08/30/18 1515:00 23:00 07:00 IntakeIntake Total 1300 ml 200 ml 1075 ml OutputOutput Total 5 ml BalanceBalance 1295 ml 200 ml 1075 ml Results Results 24hrs Laboratory Tests Test 08/30/18 04:32 White Blood Count 8.3 # Red Blood Count 4.16 L Hemoglobin 11.8 L Hematocrit 37.0 Mean Corpuscular Volume 88.9 Mean Corpuscular Hemoglobin 28.4 L Mean Corpuscular Hemoglobin Concent 31.9 L Red Cell Distribution Width 13.2 Platelet Count 267 Mean Platelet Volume 10.1 Immature Granulocytes % 0.400 Neutrophils % 76.0 Lymphocytes % 17.7 Monocytes % 5.6 Eosinophils % 0.1 Basophils % 0.2 Nucleated Red Blood Cells % 0.0 Immature Granulocytes # 0.030 Neutrophils # 6.3 Lymphocytes # 1.5 Monocytes # 0.5 Eosinophils # 0.0 Basophils # 0.0 Nucleated Red Blood Cells # 0.0 Sodium Level 139 Potassium Level 3.3 L Chloride Level 105 Carbon Dioxide Level 28 Anion Gap 6 Blood Urea Nitrogen 3 L Creatinine 0.47 Est Glomerular Filtrat Rate mL/min > 60 Glucose Level 103 Calcium Level 8.5 Total Bilirubin 0.2 Direct Bilirubin 0.00 Indirect Bilirubin 0.2 Aspartate Amino Transf (AST/SGOT) 76 H Alanine Aminotransferase (ALT/SGPT) 177 H Alkaline Phosphatase 147 H Total Protein 6.8 Albumin 3.6 Globulin 3.20 Albumin/Globulin Ratio 1.12 Medications Medication Current Medications IV Flush (NS 3 ml) 3 ml PER PROTOCOL IV ; Start 08/25/18 at 00:00 Docusate Sodium (Colace) 100 mg Q12H PRN PO .CONSTIPATION; Start 08/25/18 at 00:00 Bisacodyl (Dulcolax) 5 mg DAILY PRN PO .CONSTIPATION; Start 08/25/18 at 00:00 Acetaminophen/ Hydrocodone Bitart ([place] (5/325)) 1 tab Q6H PRN PO MODERATE PAIN LEVEL 4-6 Last administered on 08/29/18at 16:23; Admin Dose 1 TAB; Start 08/27/18 at 10:30 Ondansetron HCl (Zofran Inj) 4 mg Q6H PRN IV NAUSEA AND/OR VOMITING; Start 08/29/18 at 13:30 Acetaminophen (Tylenol Tab) 650 mg Q6H PRN PO MILD PAIN(1-3)OR ELEVATED TEMP Last administered on 08/30/18at 12:31; Admin Dose 650 MG; Start 08/29/18 at 13:30 Potassium Chloride/Dextrose/ Sod Cl 1,000 ml @ 100 mls/hr Q10H IV Last administered on 08/30/18at 04:13; Admin Dose 100 MLS/HR; Start 08/29/18 at 13:04 Enoxaparin Sodium (Lovenox) 40 mg DAILY@07 SC ; Start 08/30/18 at 07:00 RAGHAV MELENDEZ Aug 30, 2018 12:47
[2018-08-30 14:00] VITALS: BP 100/55; PULSE 74; RESP 18
[2018-08-30 20:20] VITALS: BP 111/55; PULSE 77; RESP 18
[2018-08-31] MEDS: D5W-0.45 NACL + KCL 20 MEQ 1,000 ML IV SCH ×3 (02:11→15:04)
[2018-08-31] MEDS: ENOXAPARIN 40 MG/0.4 ML SYG SC SCH (06:25)
[2018-08-31 07:34] VITALS: BP 119/66; PULSE 78; RESP 18
--- NOTE | 2018-08-31 12:22 | PDOCDIS ---
Discharge Instructions CONDITION [id number] Patient Condition: [id number] Stable HOME CARE INSTRUCTIONS: [id number] Diet Instructions: [id number] Regular ACTIVITY: [id number] Activity Restrictions: [id number] Slowly Increase Activity [id number] Bathing Restrictions: [id number] Shower FOLLOW UP/APPOINTMENTS Follow-up Plan Please take your medications as prescribed, see your doctor in the clinic in the next 1 week. GIDEON MCMANUS Aug 31, 2018 12:22
[2018-08-31] MEDS ORDERED: HYDR-3601 PO (12:24)
--- NOTE | 2018-08-31 12:27 | DS ---
Date/Time of Note Date/Time of Note DATE: 08/31/18 TIME: 12:25 Discharge Summary Admission/Discharge Info Admit Date/Time Aug 24, 2018 at 23:37 Discharge Date/Time Discharge Diagnosis #1 Symptomatic cholelithiasis- with choledocholithiasis s/p ERCP with sphincterotomy and stone removal. Status post lap namrata -Continue postop care, pain control -Diet per GI and surgery recommendations #2 Possible UTI:-Status post treatment with Macrobid -Monitor for now #3: obesity: counselled on diet and exercise Patient Condition: Stable Procedures A. ERCP 08/26/18 Impression: Choledocholithiasis. Post sphincterotomy. Post stone removal. B. Date/Time of Note Date/Time of Note DATE: 08/29/18 TIME: 12:58 Operative Report Free Text/Dictation Operative report Procedure Date: Aug 29, 2018 Preoperative Diagnosis Cholelithiasis choledocholithiasis cholecystitis Postoperative Diagnosis Same Operation/Procedure Performed Laparoscopic cholecystectomy Hx of Present Illness 37-year-old woman complains of right upper quadrant abdominal pain with nausea and multiple episodes of vomiting over the last 3 days. She does have a history of gallstones and suspects her gallstones are acting up again. She reports chills. But she denies any fevers. She does have an Essure. Hospital Course Patient seen by GI and surgery teams during her hospital stay. She underwent ERCP after a diagnosis of choledocholithiasis she had sphincterotomy and stone removal. Patient tolerated the procedure well. Afterwards she underwent laparoscopic cholecystectomy. She tolerated this procedure well too. Afterwards her labs were checked they were stable, she was able to ablate, tolerated p.o. diet. After getting clearance from wireless consultant teams she will be discharged home today in improved condition. See below for full list of discharge medications. Home Meds Active Scripts Hydrocodone Bit-Acetaminophen (Hydrocodone Bit-APAP) 5-325MG Tablet, 1 TAB PO Q6H PRN for MODERATE PAIN LEVEL 4-6, #10 TAB Prov:GIDEON MCMANUS 08/31/18 Discontinued Reported Medications [None] No Conflict Check 12/16/12 Follow-up Plan Please take your medications as prescribed, see your doctor in the clinic in the next 1 week. Primary Care Provider Not On Staff Doctor Time spent on discharge: > 30 minutes Pending Labs Laboratory Tests Test 08/31/18 04:35 White Blood Count 7.3 10^3/ul (4.8-10.8) Red Blood Count 3.85 10^6/ul (4.20-5.40) Hemoglobin 10.8 g/dl (12.0-16.0) Hematocrit 34.0 % (37.0-47.0) Mean Corpuscular Volume 88.3 fl (82.0-101.0) Mean Corpuscular Hemoglobin 28.1 pg (29.0-33.0) Mean Corpuscular Hemoglobin Concent 31.8 g/dl (32.0-37.0) Red Cell Distribution Width 13.6 % (11.5-14.5) Platelet Count 238 10^3/UL (140-415) Mean Platelet Volume 10.3 fl (7.4-10.4) Immature Granulocytes % 0.100 % (0.001-0.429) Neutrophils % 63.7 % (39.0-77.0) Lymphocytes % 27.1 % (15.0-51.0) Monocytes % 8.0 % (0.0-11.0) Eosinophils % 0.7 % (0.0-7.0) Basophils % 0.4 % (0.0-2.0) Nucleated Red Blood Cells % 0.0 /100WBC (0.0-0.0) Immature Granulocytes # 0.010 10^3/ul (0.0-0.031) Neutrophils # 4.6 10^3/ul (1.6-7.5) Lymphocytes # 2.0 10^3/ul (0.8-2.9) Monocytes # 0.6 10^3/ul (0.3-0.9) Eosinophils # 0.1 10^3/ul (0.0-0.5) Basophils # 0.0 10^3/ul (0.0-0.1) Nucleated Red Blood Cells # 0.0 10^3/ul (0.0-0.0) Sodium Level 138 mmol/L (135-144) Potassium Level 4.0 mmol/L (3.5-5.1) Chloride Level 105 mmol/L (97-110) Carbon Dioxide Level 26 mmol/L (21-31) Anion Gap 7 (5-13) Blood Urea Nitrogen 4 mg/dl (7-20) Creatinine 0.51 mg/dl (0.44-1.00) Est Glomerular Filtrat Rate mL/min > 60 mL/min (>60) Glucose Level 96 mg/dl (70-220) Calcium Level 8.2 mg/dl (8.4-10.2) Total Bilirubin 0.1 mg/dl (0.2-1.3) Direct Bilirubin 0.00 mg/dl (0.00-0.20) Indirect Bilirubin 0.1 mg/dl (0-1.1) Aspartate Amino Transf (AST/SGOT) 58 IU/L (15-46) Alanine Aminotransferase (ALT/SGPT) 142 IU/L (13-69) Alkaline Phosphatase 122 IU/L (42-121) Total Protein 6.4 g/dl (6.1-8.1) Albumin 3.2 g/dl (3.3-4.9) Globulin 3.20 g/dl (1.3-3.2) Albumin/Globulin Ratio 1.00 GIDEON MCMANUS Aug 31, 2018 12:27
--- NOTE | 2018-09-01 07:37 | PAC ---
Date/Time of Note Date/Time of Note DATE: 09/01/18 TIME: 07:36 Post-Anesthesia Notes Post-Anesthesia Note Last documented vital signs Vital Signs Date Temp Pulse Resp B/P (MAP) Pulse Ox O2 O2 Flow FiO2 Time Delivery Rate 08/31/18 97.7 78 18 119/66 97 Room Air 07:34 (83) 08/29/18 2.0 17:10 Activity: WNL Respiratory function: WNL Cardiovascular function: WNL Mental status: Baseline Pain reasonably controlled: Yes Hydration appropriate: Yes Nausea/Vomiting absent: Yes SAMANTHA VARELA Sep 01, 2018 07:36
== END 2018-08-31 16:30 | disposition home or self-care (01) | DRG 418 ==
LOC: FTE 19:04 → MS1 23:37
PROVIDERS: ADMIT Family Medicine; ATTEND Hospitalist
PROC: 0FC98ZZ Extirpation of Matter from Common Bile Duct, Via Natural or Artificial Opening Endoscopic (ICD-10-PCS; 2018-08-26)
PROC: 0FT44ZZ Resection of Gallbladder, Percutaneous Endoscopic Approach (ICD-10-PCS; principal; 2018-08-29 13:00)
DX: K80.60 Calculus of gallbladder and bile duct with cholecystitis, unspecified, without obstruction (principal); Z68.41 Body mass index [BMI] 40.0-44.9, adult; N39.0 Urinary tract infection, site not specified; E66.01 Morbid (severe) obesity due to excess calories; K76.0 Fatty (change of) liver, not elsewhere classified
CPT/HCPCS: 74181; 74330; 76705; 80053; 80061; 81001; 83036; 83690; 83735; 84443; 84703; 85025; 85610; 85730; 86704; 86706; 86709; 86803; 87340; 88304; 96374; 96375; J0690; J1100; J1170; J1650; J1885; J2001; J2175; J2405; J2543; J2795; J3010; J3480; J7030; J7042; Q9967